=== PATIENT | female | born 1990 | race Caucasian/White ===

== ENCOUNTER 2019-11-19 09:51 | Emergency (ER) | payer OTHER, SELFPAY ==
--- NOTE | ~2019-11-19 | XR_ITS ---
EXAMINATION: XR hand LT min 3V DATE: 11/19/2019 10:17 INDICATION: Pain at the left second and third metacarpals post fall TECHNIQUE: Posteroanterior, oblique and lateral views of the left hand were obtained. COMPARISON: None. FINDINGS: Alignment is normal. No fracture. Joint spaces are normal. Soft tissues are unremarkable. IMPRESSION: 1. Negative left hand radiographs. Reviewed, dictated and finalized at location A. [employer]
[2019-11-19 10:05] VITALS: BP 136/87; PULSE 89; RESP 16; TEMP 36.7; O2SAT 99
--- NOTE | 2019-11-19 10:27 | ED.UPPEXIN ---
HPI - Extremity Injury (Upper) General Chief Complaint: Extremity Injury, Upper Stated Complaint: Left Hand Injury Time Seen by Provider: 11/19/19 10:15 Source: patient and RN notes reviewed Mode of arrival: ambulatory Limitations: no limitations History of Present Illness HPI narrative: Patient presents today with an injury to her left hand. She fell last night at home after tripping and injured the dorsum of her left hand. She reports tingling in fingers 2 and 3. She currently rates her pain 6/10 and has been taking motrin and applying ice without relief. She is up-to-date on her tetanus vaccine. complaint: injury to: left and hand Related Data Home Medications Medication Instructions Recorded Confirmed No Home Medications 11/19/19 11/19/19 Allergies Allergy/AdvReac Type Severity Reaction Status Date / Time No Known Allergies Allergy Verified 03/20/18 12:00 Review of Systems Review of Systems: Narrative: CONSTITUTIONAL: Denies body aches, fever, chills, or sweats. EYES: Denies visual changes, redness, or discharge. ENT: Denies rhinorrhea, congestion, sore throat, or otalgia. CARDIOVASCULAR: Denies chest pain, palpitations, or edema. RESPIRATORY: Denies cough or dyspnea. GASTROINTESTINAL: Denies abdominal pain, nausea, vomiting, or diarrhea. GENITOURINARY: Denies dysuria or hematuria. SKIN: Denies rash, itching, or wounds. MUSCULOSKELETAL: Denies back pain. + Left hand injury NEUROLOGIC: Denies headache, numbness, tingling, or weakness. PSYCH: Denies depression or anxiety. PMFSH Comments At time of signature, I have reviewed and agree with nursing past medical, surgical, social and family history unless otherwise noted. Please see nursing chart for further information. There is no relevant family history pertinent to the presenting complaint Exam Narrative: Exam Narrative: GENERAL: Well-appearing, well-nourished, and in no acute distress. HEAD: Normocephalic, atraumatic. EYES: EOMI. No redness or drainage. Conjunctivae normal. ENT: Mucous membranes pink and moist. NECK: Normal AROM. CHEST: No respiratory distress. EXTREMITIES: Moderate ecchymosis and edema to dorsum of left second and third MCPs. 0.5 cm linear abrasion to same area. Distal sensation intact. Capillary refill normal. Radial pulse normal. Decreased AROM of fingers 2 and 3 due to pain and swelling. All other extremities grossly normal. SKIN: Warm, dry, no rash. NEURO: No focal deficits. Alert and oriented x3. Gait steady. PSYCH: Normal affect. No signs of depression or anxiety. Course Vital Signs Vital signs: Vital Signs Temperature 98.0 F 11/19/19 10:05 Pulse Rate 89 11/19/19 10:05 Respiratory Rate 16 11/19/19 10:05 Blood Pressure 136/87 11/19/19 10:05 Pulse Oximetry 99 11/19/19 10:05 Temperature 98.0 F 11/19/19 10:05 Pulse Rate 89 11/19/19 10:05 Respiratory Rate 16 11/19/19 10:05 Blood Pressure 136/87 11/19/19 10:05 Pulse Oximetry 99 11/19/19 10:05 Reviewed. Pt has been instructed to follow up with her PCP regarding her elevated blood pressure today. MDM - Extremity Injury (Upper) Differential Diagnosis Differential diagnosis: Likely fracture of hand and other (Finger fracture, hematoma, contusion) Imaging Data Radiologist's impression: ITS Impressions Hand X-Ray 11/19/19 10:19 IMPRESSION: 1. Negative left hand radiographs. Critical Care Time Critical Care Time Critical Care Time: No Discharge Plan Discharge Clinical Impression: Contusion of hand, left Qualifiers: Encounter type: initial encounter Qualified Code(s): S60.222A - Contusion of left hand, initial encounter Patient Disposition: Home, Self-Care Condition: Stable Instructions: Contusion in Adults (ED) Additional Instructions: Your x-ray is negative for fracture today. The swelling and bruising on your hand and high take up to a couple of weeks to heal. Apply ice. Continue ibu
== END 2019-11-19 10:39 | disposition home or self-care (01) ==
PROVIDERS: Emergency Provider Nurse Practitioner; PCP Internal Medicine
DX: S60.222A Contusion of left hand, initial encounter (principal); W01.0XXA Fall on same level from slipping, tripping and stumbling without subsequent striking against object, initial encounter
CPT/HCPCS: 73130; 99213; G0463

== ENCOUNTER 2021-06-02 11:02 | Emergency (ER) | payer OTHER, SELFPAY ==
[2021-06-02 11:13] VITALS: BP 148/94; PULSE 97; RESP 16; TEMP 36.2; O2SAT 100
--- NOTE | 2021-06-02 11:14 | ED.URI ---
HPI - URI/Sore Throat General Chief Complaint: Upper Respiratory Infection Stated Complaint: Cough,Runny Nose,Rash Time Seen by Provider: 06/02/21 11:14 Source: patient and RN notes reviewed Mode of arrival: ambulatory Limitations: no limitations History of Present Illness HPI Narrative: 30-year-old female presents to the [facility] with complaints of cough, runny nose and rash. Patient reports its been going on for 4 days. Red raised area to the left arm mid forearm to axilla. Yes it was a gilberto Related Data Home Medications Medication Instructions Recorded Confirmed No Home Medications 06/02/21 06/02/21 Allergies Allergy/AdvReac Type Severity Reaction Status Date / Time No Known Allergies Allergy Verified 06/02/21 11:09 Review of Systems Review of Systems: All systems reviewed & are unremarkable except as noted in HPI and below Constitutional: Constitutional: Reports no additional constitutional complaints, Denies chills and Denies fever(s) Eyes: Eyes: Reports no additional eye complaints ENT: Reports system reviewed and no additional complaints, except as documented, Denies dysphagia, Denies dizziness and Denies sore throat Cardiovascular: Cardiovascular: Reports no additional cardiovascular complaints and Denies chest pain Respiratory: Respiratory: Reports as per HPI, Reports cough and Denies dyspnea Gastrointestinal: Gastrointestinal: Reports no additional gastrointestinal complaints, Denies abdominal pain, Denies nausea and Denies vomiting Genitourinary: Genitourinary: Reports no additional female genitourinary complaints Musculoskeletal: Musculoskeletal: Reports no additional musculoskeletal complaints Integumentary/Breasts: Skin/Breast: Reports system reviewed and no additional complaints, except as docu and Denies rash Neurologic: Reports system reviewed and no additional complaints, except as documented Psychiatric: Psychiatric: Reports no additional psychiatric complaints Allergic/Immunologic: Allergic/Immunologic: Reports no additional allergic/immunologic complaints [facility] Past Medical History Medical History (Updated 06/02/21 @ 19:20 by Alesha Mascorro) Asthma Seasonal allergies Surgical History Surgical History (Updated 06/02/21 @ 19:18 by Alesha Mascorro) No significant past surgical history Social History Social History Smoking packs per day: 0.5 Smoking cigarettes per day: 10.0 Smoking status: Current every day smoker Alcohol intake: current Comments At the time of my signature, I reviewed and agree with the nursing past medical, surgical, social, and family history. There is no relevant family history pertinent to the patient complaint. Exam Const: General: healthy appearing, no acute distress and alert Nutritional Appearance: well nourished Orientation/consciousness: patient oriented x3 Limitations: no limitations HENMT: Head: normal to inspection Ears: external ears normal, TM's normal bilaterally and EAC's normal General nose exam: Normal external nose present, Abnormal mucous membranes and turbinates present boggy; not erythematous and Nasal discharge present clear Face and sinus: normal facial exam Mouth: Yes Normal oral and palatal mucosa present Throat: tonsils normal, uvula midline and postnasal drainage Eyes: Conjunctivae: conjunctivae normal Pupils: Equal, round and reactive pupils present Neck: Neck: normal visual inspection, no lymphadenopathy and no meningeal signs Chest: Chest palpation & inspection: normal inspection of the chest Resp: Effort & Inspection: normal respiratory effort and no use of accessory muscles Auscultation: clear to auscultation bilaterally, no crackles, no rales, no rhonchi and no wheezes Cardio: Rate: regular rate Rhythm: regular rhythm GI: GI Palp: Yes Soft to palpation and No Tenderness to palpation present (GI) : General: Yes no CVA tenderness Back/Spine/Pelvis
[2021-06-03 19:55] LABS: SARS-CoV-2 RNA PCR Negative
== END 2021-06-02 11:30 | disposition home or self-care (01) ==
PROVIDERS: Emergency Provider Nurse Practitioner; PCP Internal Medicine
DX: J06.9 Acute upper respiratory infection, unspecified (principal); Z20.822 Contact with and (suspected) exposure to COVID-19; J45.909 Unspecified asthma, uncomplicated
CPT/HCPCS: 99213; C9803; G0463; U0003; U0005

== ENCOUNTER 2024-03-04 19:48 | Emergency (ER) | payer OTHER, SELFPAY ==
--- NOTE | 2024-03-04 19:53 | ED.GENADULT ---
HPI - General Adult General Chief complaint: Upper Respiratory Infection Stated complaint: COUGH/SLEEPING/NO ENERGY/NAUSEA Time Seen by Provider: 03/04/24 19:53 Source: patient Mode of arrival: ambulatory Limitations: no limitations History of Present Illness HPI narrative: 33-year-old female patient presents to the [facility] with complaints of cold symptoms for the past 2 days. Patient states she has had fevers as high as 101. Patient states she has been very fatigued and just mostly sleeping. Patient states little bit congestion slight cough denies chest pain, shortness of breath denies any ear pain or sore throat. Denies taking any medications for his symptoms. Related Data Home Medications Medication Instructions Recorded Confirmed No Home Medications 06/02/21 03/04/24 Allergies Allergy/AdvReac Type Severity Reaction Status Date / Time No Known Allergies Allergy Verified 03/04/24 19:57 Review of Systems Review of Systems: CONSTITUTIONAL: Positive subjective fever, denies chills, or sweats. positive fatigue EYES: Denies visual changes, redness, or discharge. ENT: positive rhinorrhea, positive congestion, denies sore throat, or otalgia. CARDIOVASCULAR: Denies chest pain, palpitations, or edema. RESPIRATORY: positive cough , denies dyspnea. GASTROINTESTINAL: Denies abdominal pain, nausea, vomiting, or diarrhea. GENITOURINARY: Denies dysuria or hematuria. SKIN: Denies rash or itching. MUSCULOSKELETAL: Denies back pain, joint pain, or myalgia. NEUROLOGIC: Denies headache, numbness, or weakness. PSYCHIATRIC: Denies anxiety or depression. PMFSH Past Medical History Medical History Asthma Seasonal allergies Surgical History Surgical History No significant past surgical history Social History Social History Smoking packs per day: 0.5 Smoking cigarettes per day: 10.0 Smoking status: Current every day smoker Alcohol intake: current Comments At the time of my signature I agree with nursing past medical history, surgical, social, and family history. There is no relevant family history pertinent to the presenting complaint. Exam Narrative: GENERAL: Well-appearing, well-nourished, and in no acute distress. HEAD: Normocephalic, atraumatic. EYES: PERRLA and EOMI. ENT: Nares clear, no rhinorrhea or epistaxis. Mucous membranes moist. posterior pharynx with no erythema, tonsillar enlargement, exudates or lesions present. Bilateral TMs are clear no erythema or foreign bodies the canal. NECK: Supple. No lymphadenopathy CHEST: Clear to auscultation. No respiratory distress. HEART: Regular rate and rhythm. No murmur heard. Normal peripheral pulses. ABDOMEN: Soft, nontender, nondistended, normal active bowel sounds. EXTREMITIES: Normal range of motion. No edema. SKIN: Warm, dry, no rash. NEURO: No focal deficits. Alert and oriented x3. Course Course Level of Care: Express Care Visit Vital Signs Vital signs: Vital Signs Temperature 36.5 C 03/04/24 19:59 Pulse Rate 86 03/04/24 19:59 Respiratory Rate 16 03/04/24 19:59 Blood Pressure 157/100 H 03/04/24 19:59 Pulse Oximetry 97 03/04/24 19:59 Temperature 36.5 C 03/04/24 19:59 Pulse Rate 86 03/04/24 19:59 Respiratory Rate 16 03/04/24 19:59 Blood Pressure 157/100 H 03/04/24 19:59 Pulse Oximetry 97 03/04/24 19:59 Vital signs reviewed. The patient has been informed that they may have pre-hypertension or Hypertension based on a BP reading in the department. I recommend that the patient call the primary care provider listed on their discharge instructions or a physician of their choice this week to arrange follow up for further evaluation of possible pre-hypertension or Hypertension Medical Decision Making TERRY Liao Medical decision ma
[2024-03-04 19:59] VITALS: BP 157/100; PULSE 86; RESP 16; TEMP 36.5; O2SAT 97
== END 2024-03-04 20:17 | disposition home or self-care (01) ==
PROVIDERS: Emergency Provider Nurse Practitioner Family
DX: J06.9 Acute upper respiratory infection, unspecified (principal); Z20.822 Contact with and (suspected) exposure to COVID-19; F17.210 Nicotine dependence, cigarettes, uncomplicated; J45.909 Unspecified asthma, uncomplicated
CPT/HCPCS: 87426; 87804; 99213; G0463

== ENCOUNTER 2025-01-06 02:17 | Emergency (ER) | payer OTHER, SELFPAY ==
[2025-01-06] VITALS (25 sets, daily range): BP systolic 128–156; BP diastolic 64–106; PULSE 87–130; RESP 14–20; TEMP 36.7; O2SAT 94–99
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
[2025-01-06] MEDS: ACETAMINOPHEN 500 MG TABLET 1000 MG PO (02:51)
[2025-01-06 02:57] LABS: Basophils Percent Auto 0.3 % (0.2-1.2); Hematocrit 40.7 % (37.0-47.0); Hemoglobin 13.6 g/dL (12.0-15.0); Immature Granulocyte Absolute 0.02 K/mm3 (0.00-0.031); Immature Granulocyte Percent A 0.3 % (0-0.5); Lymphocytes Absolute Auto 0.84 K/mm3 (0.9-3.2); Lymphocytes Percent Auto 13.4 % (18.3-44.2); Mean Corpuscular HGB Conc 33.4 g/dl (32-36); Mean Corpuscular Hemoglobin 30.4 pg (26-34); Mean Corpuscular Volume 90.8 fl (80-100); Mean Platelet Volume 9.1 fl (7.4-10.4); Monocytes Absolute Auto 0.3 K/mm3 (0.1-0.6); Monocytes Percent Auto 4.1 % (2.6-8.5); Neutrophils Absolute Auto 5.1 K/mm3 (1.3-6.7); Neutrophils Percent Auto 81.9 % (45.5-73.1); Platelet Count Result 381 k/mm3 (150-375); Red Blood Count 4.48 M/mm3 (4.2-5.4); Red Cell Distribution Width 11.9 % (11.5-14.5); White Blood Count 6.3 K/mm3 (4.5-10.0)
[2025-01-06 03:11] LABS: Alanine Aminotransferase 16 U/L (6-35); Albumin Level 4.7 g/dL (3.5-5.1); Alkaline Phosphatase 81 U/L (38-126); Anion Gap 20 mmol/L (4-12); Aspartate Amino Transferase 21 U/L (14-36); Bilirubin,Total 0.3 mg/dL (0.2-1.3); Blood Urea Nitrogen 11 mg/dL (7-17); Calcium 9.6 mg/dL (8.4-10.2); Carbon Dioxide 11 mmol/L (22-30); Chloride 113 mmol/L (98-107); Estimated CRCL calculation 77 ml/min; Estimated Glomerular Filt Rate > 60; Glucose 299 mg/dL (65-110); Potassium 3.6 mmol/L (3.4-5.0); Sodium 144 mmol/L (137-145)
--- OUTSIDE RECORDS SUMMARY | 2025-01-06 03:28 | XMS_ITS | Clinical Summary ---
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 Name Role Phone Unavailable Primary Care Provider Unavailabl e Social History Tobacco Use Types Packs/Day Years Used Date Smoking Tobacco: Never Assessed Comments Unknown Sex and Gender Information Value Date Recorded Sex Assigned at Not on file Legal Sex Female 12:09 PM [employer] Gender Identity Not on file Sexual Orientation Not on file Plan of Treatment Health Maintenance Due Date Last Done Comments Hepatitis C Virus (HCV) Screening 1991 TdaP Immunization 1991 Hepatitis B Immunization (1 of 3 - 19+ 3-dose series) 2010 Pap Smear 2012 Cervical Cancer Screening (CCS) 2021 HPV/Cotest 2021 Influenza Immunization (#1) 2024 SARS-COV-2 Immunization ( season) 2024 Respiratory Syncytial Virus (RSV) Immunization (Adult) (1 - 1-dose 75+ series) 2066 Meningococcal Immunization (ACWY) Aged Out No longer eligible based on patient's age to complete this topic Pneumococcal Immunization Combined Aged Out No longer eligible based on patient's age to complete this topic Rotavirus Immunization Aged Out No lo nger eligible based on patient's age to complete this topic Insurance [employer] on file
--- OUTSIDE RECORDS SUMMARY | 2025-01-06 03:28 | XMS_ITS | Referral Summary ---
Author Organization [facility] Address [address] [place] [address] Care Team Providers Care Attendant Lodging Facilities Name Role Phone Jordin Bronson MD Primary Care Provider +1- [phone] Allergies No known active allergies Medications albuterol HFA (PROVENTIL HFA,VENTOLIN HFA,PROAIR HFA) 90 mcg/actuation inhaler Inhale 2 puffs every 4 (four) hours as needed for wheezing 1 each 12/23/2022 Active Social History Tobacco Use Types Packs/Day Years Used Date Smoking Tobacco: Heavy Smoker Comments:Smoking History Pac ks/day: 10 Cigarettes Alcohol Use Standard Drinks/Week Comments Yes 0 (1 standard drink = 0.6 oz pur e alcohol) Personal Safety Answer Date Recorded Getting School Help Needed Not on file 01/12 Comments Unknown Sex and Gender Information Value Date Recorded Sex Assigned at Not on file 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 Gender Identity Not on file Sexual Orientation Not on file Last Filed Vital Signs Vital Sign Reading Time Taken Comments Blood Pressure 150/95 12/23/2022 1:15 PM CDT Pulse 80 12/23/2022 1:15 PM CDT Temperature 36.2 C (97.1 F) 12/23/2022 1:15 PM CDT Respiratory Rate 18 12/23/2022 1:15 PM CDT Oxygen Saturation 98% 12/23/2022 1:15 PM CDT Inhaled Oxygen Concentration - - Weight 76.6 kg (168 lb 12.8 oz) 07/31/2015 4:45 PM CDT Height 162.6 cm (5' 4 ) 07/31/2015 4:45 PM CDT Body Mass Index 28.97 07/31/2015 4:45 PM CDT Plan of Treatment Not on file Insurance AETNA [facility] Care Teams Attendant Lodging Facilities Relationship Specialty Start Date End Date Jordin Bronson MD [address] [place] [address] PCP - General 07/31/15
--- OUTSIDE RECORDS SUMMARY | 2025-01-06 03:28 | XMS_ITS | Clinical Summary ---
Author Organization [facility] Address [address] [place] [address] Care Team Providers Care Probation And Patrol Agent Name Role Phone Jordin Bronson MD Primary Care Provider +1- [phone] Allergies No known active allergies Medications albuterol HFA (PROVENTIL HFA,VENTOLIN HFA,PROAIR HFA) 90 mcg/actuation inhaler Inhale 2 puffs every 4 (four) hours as needed for wheezing 1 each 12/23/2022 Active Surgical History Surgery Date Site/Laterality Comments SECTION Medical History Medical History Date Comments Asthma Asthma Social History Tobacco Use Types Packs/Day Years [...] on file 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 Gender Identity Not on file Sexual Orientation Not on file Obstetrics History Last Filed Vital Signs Vital Sign Reading [...] 07/31/2015 4:45 PM CDT Plan of Treatment Health Maintenance Due Date Last Done Comments Cervical Cancer Screening 1991 Depression Screening 1991 Hepatitis C Screening 1991 DTaP/Tdap/Td Vaccine (1 - Tdap) 2002 Varicella Vaccines (1 of 2 - 13+ 2-dose series) 2004 Hepatitis B Screening 2009 Regular Well Visit/Exam 18-64 2009 Pneumococcal vaccine <65 (1 of 2 - PCV) 2010 Influenza Vaccine (#1) 2024 HPV Vaccines Aged Out No longer eligi ble based on patient's age to complete this topic Insurance AETNA [facility] Care Teams Probation And Patrol Agent Relationship Specialty Start Date End Date Jordin Bronson MD [address] [place] [address] PCP - General 07/31/15
[2025-01-06 03:30] LABS: Beta HCG Quantitative < 2.39 mIU/ML
[2025-01-06 03:55] LABS: Glucose Point of Care 202 mg/dl (65-105)
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
[2025-01-06] MEDS: LORazepam INJ (*CRX) 2 MG/ML VIAL IV PUSH (04:15)
[2025-01-06] MEDS: ONDANSETRON INJ 4 MG/2 ML VIAL IV PUSH (04:15)
--- NOTE | 2025-01-06 04:24 | PC.NURSE ---
[facility] seizure. edp dr. zamudio verbal ordered 2mg of ativan to be given IVPush due to seizure like activity. this rn used closed loop communication to verify medication/ rate/ dose/ person/ time. edp dr. zamudio verbalized confirmation and placed a medication order in chart. pt is ao x4 upon arrival to bedside. pt has a manageable airway. pt not in active distress at this time and vitals are within normal limits.
--- NOTE | 2025-01-06 04:40 | PC.NURSE ---
Sane to nurses station to state, Patient is too zonked to be evaluated at this time . nuclear plant technical advisor and KNITTER MACHINE Lalita aware.
[2025-01-06 04:53] LABS: Ethanol 111 mg/dL (<10)
--- NOTE | 2025-01-06 05:01 | PC.NURSE ---
patient moved from room 22 to room 11 per clinic charge nurse MB. pt report was given to MEG Gonzalez.
[2025-01-06] MEDS: SODIUM CHLORIDE 0.9% IV 1,000 ML 999 ML IV CONT (06:12)
[2025-01-06 06:38] LABS: Beta-Hydroxybutyrate/Acetoacetate 0.11 mmol/L (0.02-0.27)
[2025-01-06 08:09] LABS: BEDSIDEPREGUCG Negative (Negative)
[2025-01-06 08:35] LABS: Barbiturate Screen Urine Negative (Negative); Benzodiazepines Screen Urine Negative (Negative)
[2025-01-06 08:37] LABS: Cannabinoid Screen Urine Negative (Negative); Cocaine Screen Urine Negative (Negative); Methadone Screen Urine Negative (Negative); Opiate Screen Urine Negative (Negative); Phencyclidine Screen Urine Negative (Negative)
[2025-01-06] MEDS: NALOXONE HCL 0.4 MG/ML VIAL IV PUSH (08:44)
[2025-01-06 08:51] LABS: Amphetamine Screen Urine Positive (Negative)
--- NOTE | 2025-01-06 14:52 | PC.NURSE ---
DEANN's nurse here and talking with the pt. Pt is now more alert and awake.
[2025-01-06] MEDS: cefTRIAXone 1 GM VIAL 0.5 GM IM (17:24)
[2025-01-06] MEDS: DOXYCYCLINE HYCLATE 100 MG TABLET PO (17:24)
[2025-01-06] MEDS: metroNIDAZOLE 500 MG TABLET PO (17:24)
[2025-01-06 17:58] LABS: HIV 1/2 Ab P24 Ag Result Negative (Negative)
--- NOTE | 2025-01-06 18:43 | PC.NURSE ---
Pt offered shower and pt refused.
== END 2025-01-06 19:22 | disposition home or self-care (01) ==
PROVIDERS: Registered Nurse; Student in an Organized Health Care Education/Training Program; Emergency Provider Family Medicine
DX: T74.21XA Adult sexual abuse, confirmed, initial encounter (principal); Y07.031 Male partner, former, perpetrator of maltreatment and neglect; F10.129 Alcohol abuse with intoxication, unspecified; Y90.5 Blood alcohol level of 100-119 mg/100 ml; D75.839 Thrombocytosis, unspecified; J45.909 Unspecified asthma, uncomplicated; F17.210 Nicotine dependence, cigarettes, uncomplicated
CPT/HCPCS: 36415; 70450; 70498; 71045; 72125; 73060; 73130; 80053; 80307; 81025; 82010; 82077; 82948; 83036; 83605; 84702; 85025; 86703; 96361; 96372; 96374; 96375; 99285; A9270; G0432; J0696; J2003; J2060; J2310; J2405; J7030; Q9967

== ENCOUNTER 2025-02-26 18:18 | Emergency (ER) | payer OTHER, SELFPAY ==
--- OUTSIDE RECORDS SUMMARY | 2025-02-26 18:21 | XMS_ITS | Clinical Summary ---
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
--- OUTSIDE RECORDS SUMMARY | 2025-02-26 18:21 | XMS_ITS | Referral Summary ---
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
--- OUTSIDE RECORDS SUMMARY | 2025-02-26 18:21 | XMS_ITS | Data Portability ---
Author Organization [facility] Main Office Address [address] [place] [address] Assessment No assessment recorded. Plan of Treatment Reminders Order Date Submit Date Provider Last Modified By Organization Details Last Modified Time Details Appointments Follow Up 15 2024 01:00P [facility] Elizalde Not available Not available Not available Lab drug of abuse panel, urine 2023 024 [facility] [address] [place], [address], 10/03/2024 19:02:16 Referral orthopedi c sports medicine referral - right thumb pain , please eval and treat. Please call patient to schedule an appointme nt. Thank you. 2023 024 [email or web address], [address] [place] [address], [address], 11/03/2024 08:49:43 Procedures None recorded. Surgeries None recorded. Imaging None recorded. Medication Orders Aptensio XR 30 mg capsule,e xtended release sprinkle 2024 025 [email or web address] 00 [facility]/Pharmacy #3259, [address] [place], [address], 02/04/2025 15:04:51 albuterol sulfate HFA 90 mcg/actua tion aerosol inhaler 2023 024 [facility]/Pharmacy #3259, [address] [place], [address], 10/03/2024 16:30:06 Dulera 100 mcg-5 mcg/actua tion HFA aerosol inhaler 2023 024 [facility]acy #3259, [address] [place] [address], [address], 10/03/2024 16:30:05 Depo-Medr ol 80 mg/mL suspensio n for injection 2023 024 [email or web address] Not available 10/03/2024 16:37:47 methylphe nidate ER 30 mg capsule,e xtended release (40-60) sprinkle 2023 025 [email or web address] 00 [facility]/Pharmacy #3259, [address] [place] [address], [id number], 10/09/2024 16:54:33 baclofen 10 mg tablet 2023 024 [facility] #3259, [address] [place] [address], [id number], 10/03/2024 16:25:03 ibuprofen 600 mg tablet 2023 024 [facility] #3259, [address] [place] [address], [address], 10/03/2024 16:25:04 prednison e 20 mg tablet [address]/Pharmacy #3259, [address] [place] [address], [id number], 01/29/2025 12:38:35 cyclobenz aprine 10 mg tablet [address]/Pharmacy #3259, [address] [place] [address], [address], 01/29/2025 12:38:46 methylphe nidate ER 10 mg tablet,ex tended release [address]/Pharmacy #3259, [address] [place] [address], [place], [address], 01/29/2025 12:39:21 Patient TargetsNo targets recorded. Patient Instructions Encounter Date Encounter Id Patient Instructions Last Modified By Organization Details Last Modified Time 10/03/2024 [id number] get KT tape ,watch you tube video on how to cut and apply to thumb [email or web address] Not available 10/09/2024 16:56:14 Reason for Referral Orthopedic Sports Medicine R eferral for Pain in right thumb right thumb pain , please eval and treat. Please call patient to schedule an appointment. Thank you. Referring Physician: Patricio Cherry, Family Medicine, Encounter Date: 10/03/2024 Results Created Date Observation Date Name Description Value Unit Range Abnormal Flag Note LastModifiedBy Organization Detail LastModifiedTime Result Notes None recorded. Problems Name Problem SNOMED Code Status Onset Date Resolution Date Notes Provider Name and Address Organization Details Recorded Time Attention deficit hyperactivi ty disorder, predominant ly inattentive type 93980878 Active 2023 MARIO ALBERTO Ortega [address], [place], [address], [employer] 15:49:23 Cyst 047922203 Active 2023 MARIO ALBERTO Ortega [address], [place], [address], [employer] 15:51:32 Pain in right thumb 7043265458171 102 Active 2023 MARIO ALBERTO Ortega [address], [place], [address], [employer] 15:54:51 Asthma 191303689 Active 2023 MARIO ALBERTO Ortega [address], [place], [address], [employer] 16:25:42 Problem Notes None recorded. Procedures Surgical History Date Name Laterality Status Provider Name and Address Organization Details Recorded Time section completed Steff Brown RN [facility] 08/01/2024 15:15:21 Imaging Results None recorded. Procedure Notes None recorded. Medical Equipment None Reported. Allergies No known drug allergies Medications Name Sig Start Date Stop Date Status Note LastModified by Organization Details LastModified Time cyclobenza christina 10 mg tablet TAKE 1 TABLET BY MOUTH EVERY DAY AT BEDTIME FOR 30 DAYS 01/29 completed pt does not like this med; does help her sleep . Not Available Not Available Not Available doxycyclin e hyclate 100 mg capsule TAKE 1 CAPSULE BY MOUTH TWICE A DAY 01/29 completed Not Available Not Available Not Available prednisone 20 mg tablet PLEASE SEE ATTACHED FOR DETAILED DIRECTION S 01/29 completed Not Available Not Available Not Available methylphen idate ER 10 mg tablet,ext ended release Take 1 tablet every day by oral route in the morning for 14 days. 01/29 completed Not Available Not Available Not Available metronidaz ole 500 mg tablet TAKE 1 TABLET EVERY 8 HOURS FOR 7 DAYS 01/29 completed Not Available Not Available Not Available Depo-Medro l 80 mg/mL suspension for injection Take 1 mL by injection route. 2023 active Not Available Not Available Not Avai lable baclofen 10 mg tablet TAKE 1 TABLET BY MOUTH THREE TIMES A DAY NEEDED FOR 30 DAYS active Not Available Not Available No t Available methylphen idate ER 20 mg tablet,ext ended release TAKE 1 TABLET BY MOUTH EVERY DAY IN THE MORNING 01/29 completed Not Available Not Available Not Available ibuprofen 600 mg tablet TAKE 1 TABLET 3 TIMES A DAY BY ORAL ROUTE AFTER MEAL(S) FOR 30 DAYS. active Not Available Not Available No t Available albuterol sulfate HFA 90 mcg/actuat ion aerosol inhaler INHALE 2 PUFFS EVERY 8 HOURS BY INHALATIO N ROUTE NEEDED FOR 30 DAYS. active Not Available Not Available No t Available ondansetro n 4 mg disintegra ting tablet TAKE 1 TABLET BY MOUTH EVERY 6-8 HOURS NEEDED FOR NAUSEA AND VOMITING active Not Available Not Available No t Available Isentress 400 mg tablet TAKE 1 TABLET BY MOUTH TWICE A DAY 01/29 completed Not Available Not Available Not Available Vyvanse 40 mg capsule TAKE 1 CAPSULE BY MOUTH EVERY DAY IN THE MORNING active Not Available Not Available No t Available Dulera 100 mcg-5 mcg/actuat ion HFA aerosol inhaler INHALE 2 PUFFS INTO THE LUNGS TWICE A DAY FOR 30 DAYS active Not Available Not Available No t Available Viread 200 mg tablet TAKE 1 TABLET BY MOUTH EVERY DAY 01/29 completed Not Available Not Available Not Available methylphen idate ER 30 mg capsule,ex tended release (40-60) sprinkle TAKE 1 CAPSULE BY MOUTH EVERY DAY IN THE MORNING active Not Available Not Available No t Available methylphen idate ER 30 mg chewable tablet immed and exten.rele ase 24 hr Chew 1 tablet every day by oral route in the morning for 30 days. 2024 active Not Available Not Available Not Avai lable Vitals Date Recorded Body height Body mass index (BMI) Body weight Body temperature Oxygen saturation Oxygen saturation in Arterial blood by Pulse oximetry Heart rate Systolic And Diastolic Provider Name and Address Organization Details Last Updated DateTime 5 157.48 cm 27.4 kg/m2 68380.8 6 g 98 [degF] 99 % 99 % 86 /min 118/80 mm[Hg] Tete Yadav Babar [facility] [employer] [facility] 5 12:41:13 Date Recorded Body weight Body mass index (BMI) Body height Body temperature Heart rate Oxygen saturation Oxygen saturation in Arterial blood by Pulse oximetry Systolic And Diastolic Provider Name and Address Organization Details Last Updated DateTime 4 29804.6 7 g 27.1 kg/m2 157.48 cm 96.8 [degF] 101 /min 99 % 99 % 120/86 mm[Hg] Steff Brown RN [facility] [employer] [facility] 4 15:16:58 Date Recorded Body height Body mass index (BMI) Body weight Body temperature Heart rate Oxygen saturation Oxygen saturation in Arterial blood by Pulse oximetry Systolic And Diastolic Provider Name and Address Organization Details Last Updated DateTime 4 157.48 cm 28.7 kg/m2 31815 g 98.2 [degF] 100 /min 98 % 98 % 130/86 mm[Hg] Steff Brown RN [facility] [employer] [facility] 4 16:16:00 Social History None recorded. Functional Status None recorded. Mental Status None recorded. Family History Nothing Reported. Medical History No medical history recorded. Gynecological HistoryNo gynecological history recorded. Obstetrics History GPAL:G 0 P 0 0 0 0 Past Encounters Encounter ID Performer Location Encounter Start Date Encounter Closed Date Diagnosis/Indication Diagnosis SNOMED-CT Code Diagnosis ICD10 Code Diagnosis Note [id number] Antonino Ramirez MD [facility] [address] [place] [address] 08/01/2024 15:07:34 08/01/2024 16:01:00 Attention deficit hyperactivity disorder, predominantly inattentive type 61169937 F90.0 Pain in right thumb 1076 884881 570762 M79.644 subchondra l cyst thumb right [id number] Antonino Ramirez MD [facility] [address] [place] [address] 10/03/2024 16:07:23 10/03/2024 16:42:12 Long-term drug therapy 629728415 Z79.891 Pain in right thumb 1076 113935 946945 M79.644 subchondra l cyst thumb right Asthma 132015773 J45.90 9 Attention deficit hyperactivity disorder, predominantly inattentive type 65651000 F90.0 [id number] Antonino Ramirez MD [facility] [address] [place] [address] 01/29/2025 12:30:08 01/29/2025 12:55:13 Attention deficit hyperactivity disorder, predominantly inattentive type 56579560 F90.0 Health Concerns Section Related Observation LastModified by Organization Detai ls LastModified Time None Recorded Concern Status LastModified by Organization Details LastModified Time None Recorded Advance Directives Directive None Recorded Payers Encounter Date Sequence Insurance Name Policy Number Policy Cline Covered Member ID Cline Member ID Guarantor Name 08/01/2024 1 [employer] [place] 2020 [place]MEDICAID REPLACEMENT - HMO) Kera Srinivasan [id number] Kera Srinivasan 10/03/2024 1 [employer] [place]MEDICAID REPLACEMENT - HMO) Kera Srinivasan [id number] Kera Srinivasan 01/29/2025 1 [employer] [place]MED[place]ID REPLAC[place] - HMO) Kera Robertdeejay [id number] Kera Srinivasan Notes Date Note Type Note Provider Name and Address Organization Details Recorded Time 08/01/2024 text/html treated in high school . MARIO ALBERTO Bermeo [address] [facility], [place], [address], [employer] 08/27/2024 17:41:02 10/03/2024 text/html asthma has flared MARIO ALBERTO Ortega [address], [place], [address], [employer] 10/09/2024 16:56:32 01/29/2025 text/html [employer] not helping . MARIO ALBERTO Ortega [address], [place], [address], [employer] 02/04/2025 15:07:27 OBGyn Episode No OBEpisode recorded.
[2025-02-26 18:24] VITALS: BP 143/105; PULSE 88; RESP 100; TEMP 36.6; O2SAT 100
== END 2025-02-26 20:25 | disposition left against medical advice (07) ==
LOC: ANHED 19:32
DX: R51.9 Headache, unspecified (principal)
CPT/HCPCS: 99199

== ENCOUNTER 2025-02-28 12:25 | Observation (INO) | payer OTHER, SELFPAY ==
--- NOTE | ~2025-02-28 | MR_ITS ---
EXAMINATION: MR brain/brain stem wo/w con DATE: 03/01/2025 15:47 INDICATION: Headache. Convulsions. TECHNIQUE: Magnetic resonance imaging (MRI) of the brain and brainstem was performed without and with 14 mL ProHance intravenous contrast. Sequences included sagittal and axial T1-weighted SE, axial dif fusion-weighted FS SE, axial 3D SWAN, axial T2-weighted FLAIR Propeller, axial T2-weighted Propeller, coronal T2-weighted FLAIR, and coronal T1-weighted 3D FSPGR. Postcontrast axial T1-weighted SE was o btained. Apparent diffusion coefficient (ADC) maps were created. COMPARISON: Head CT dated 02/28/2025 FINDINGS: There are no areas of restricted diffusion to suggest acute infarction. No intracranial hemorrhage or abnormal intracranial mass lesion. There are no intraparenchymal signal abnormalities seen on the ot her pulse sequences. Hippocampi are normal and symmetric. No cueva matter heterotopias or other neuron al migrational abnormalities. The ventricles are symmetric and normal in size. There are no abnormal extra-axial fluid collections. Flow voids are seen in the cerebral arteries on the T2-weighted sequen heath consistent with their expected patency. Visualized orbits and soft tissues are unremarkable. Ther e are no areas of abnormal enhancement on the post contrast images. IMPRESSION: 1. Normal brain. No acute intracranial process. Reviewed, dictated and finalized at location A.
--- NOTE | ~2025-02-28 | CT_ITS ---
EXAMINATION: CT brain wo con DATE: 02/28/2025 14:39 INDICATION: Headache. Possible seizure. TECHNIQUE: Computed tomography (CT) of the head was performed without intravenous contrast. Sagittal and coronal reconstructions were performed. The mA was adjusted according to patient size. Iterative reconstruction technique was employed. The dose-length product was 605.33 mGy-cm. COMPARISON: head CT dated 01/06/2025 FINDINGS: No acute intracranial hemorrhage, acute infarction or abnormal extra axial fluid collection. Ventricl es are normal and symmetric. No mass/mass effect. The orbits, paranasal sinuses and mastoid air cells are normal. IMPRESSION: 1. Normal head CT. Reviewed, dictated and finalized at location A. IMPRESSION: 1. Normal head CT.
--- OUTSIDE RECORDS SUMMARY | 2025-02-28 12:31 | XMS_ITS | Referral Summary ---
Author Organization 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
--- OUTSIDE RECORDS SUMMARY | 2025-02-28 12:31 | XMS_ITS | Data Portability ---
Author Organization [place] - [facility], Main Office Address [address] [place] [address] Assessment No assessment recorded. Plan of Treatment Reminders Order Date Submit Date Provider Last Modified By Organization Details Last Modified Time Details Appointments Follow Up 15 2024 01:00P WU Elizalde Not available Not available Not available Lab drug of abuse panel, urine 2023 024 [facility] ([facility]), [address] [place], [address], 10/03/2024 19:02:16 Referral orthopedi c sports medicine referral - right thumb pain , please eval and treat. Please call patient to schedule an appointme nt. Thank you. 2023 024 [email or web address], [address] [place] [address], [address], 11/03/2024 08:49:43 Procedures None recorded. Surgeries None recorded. Imaging None recorded. Medication Orders Aptensio XR 30 mg capsule,e xtended release sprinkle 2024 025 [email or web address] 00 [facility]/Pharmacy #3259, [address] [place], [address], 02/04/2025 15:04:51 albuterol sulfate HFA 90 mcg/actua tion aerosol inhaler 2023 024 [facility]/Pharmacy #3259, [address] [place], [address], 10/03/2024 16:30:06 Dulera 100 mcg-5 mcg/actua tion HFA aerosol inhaler 2023 024 [facility]/Pharmacy #3259, [address] [place] [address], [id number], 10/03/2024 16:30:05 Depo-Medr ol 80 mg/mL suspensio n for injection 2023 024 [email or web address] Not available 10/03/2024 16:37:47 methylphe nidate ER 30 mg capsule,e xtended release (40-60) sprinkle 2023 025 [email or web address] 00 [facility]/Pharmacy #3259, [address] [place] [address], [id number], 10/09/2024 16:54:33 baclofen 10 mg tablet 2023 024 [facility]/Pharmacy #3259, [address] [place] [address], [id number], 10/03/2024 16:25:03 ibuprofen 600 mg tablet 2023 024 [facility]/Pharmacy #3259, [address] [place] [address], [address], 10/03/2024 16:25:04 prednison e 20 mg tablet [address]/Pharmacy #3259, [address] [place] [address], [id number], 01/29/2025 12:38:35 cyclobenz aprine 10 mg tablet [address]/Pharmacy #3259, [address] [place] [address], [address], 01/29/2025 12:38:46 methylphe nidate ER 10 mg tablet,ex tended release [address]/Pharmacy #3259, [address] [place] [address], [place], [address], 01/29/2025 12:39:21 Patient TargetsNo targets recorded. Patient Instructions Encounter Date Encounter Id Patient Instructions Last Modified By Organization Details Last Modified Time 10/03/2024 [id number] get KT tape ,watch you tube video on how to cut and apply to thumb Not available 10/09/2024 16:56:14 Reason for Referral [...] hyperactivi ty disorder, predominant ly inattentive type 94341125 Active 2023 MARIO ALBERTO Ortega [address], [employer], [place], [address], [employer] 15:49:23 Cyst 259588727 Active 2023 MARIO ALBERTO Ortega [address] [employer], [place], [address], [employer] 15:51:32 Pain in right thumb 2938814432933 102 Active 2023 MARIO ALBERTO Ortega [address], [employer], [place], [address], [employer] 15:54:51 Asthma 357874228 Active 2023 MARIO ALBERTO Ortega [address], [address], [place], [address], [employer] 16:25:42 Problem Notes None recorded. Procedures Surgical History Date Name Laterality Status Provider Name and Address Organization Details Recorded Time section completed Steff Brown RN [facility] 08/01/2024 15:15:21 Imaging Results None recorded. Procedure [...] blood by Pulse oximetry Heart rate Systolic blood pressure Diastolic blood pressure Provider Name and Address Organization Details Last Updated DateTime 5 157.48 cm 27.4 kg/m2 13775.8 6 g 98 [degF] 99 % 99 % 86 /min 118 mm[Hg] 80 mm[Hg] Tete Yadav Babar [facility] [employer] [facility] 5 12:41:13 Date Recorded Body weight Body mass index (BMI) Body height Body temperature Heart rate Oxygen saturation Oxygen saturation in Arterial blood by Pulse oximetry Systolic blood pressure Diastolic blood pressure Provider Name and Address Organization Details Last Updated DateTime 4 34283.6 7 g 27.1 kg/m2 157.48 cm 96.8 [degF] 101 /min 99 % 99 % 120 mm[Hg] 86 mm[Hg] Steff Brown RN [facility] [employer] [facility] 4 15:16:58 Date Recorded Body height Body mass index (BMI) Body weight Body temperature Heart rate Oxygen saturation Oxygen saturation in Arterial blood by Pulse oximetry Systolic blood pressure Diastolic blood pressure Provider Name and Address Organization Details Last Updated DateTime 4 157.48 cm 28.7 kg/m2 86971 g 98.2 [degF] 100 /min 98 % 98 % 130 mm[Hg] 86 mm[Hg] Steff Brown RN [facility] [email or web address] [facility] 4 16:16:00 Social History None recorded. Functional Status None recorded. Mental Status None recorded. Family History Nothing Reported. Medical History No medical history recorded. Gynecological HistoryNo gynecological history recorded. 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 Pain in right thumb 1076 679960 091587 M79.644 subchondra l cyst thumb right [id number] Antonino Ramirez MD [facility] [address] [place] [address] 10/03/2024 16:07:23 10/03/2024 16:42:12 Long-term drug therapy 882269474 Z79.891 Pain in right thumb 1076 096968 223719 M79.644 subchondra l cyst thumb right Asthma 248564581 J45.90 9 Attention deficit hyperactivity disorder, predominantly inattentive type 02278597 F90.0 [id number] Antonino Ramirez MD [facility] [address] [place] [address] 01/29/2025 12:30:08 01/29/2025 12:55:13 Attention deficit hyperactivity disorder, predominantly inattentive type 03187328 F90.0 Health Concerns Section Related Observation LastModified [...] 2020 (MEDICAID REPLACEMENT - HMO) Kera Srinivasan [id number] Kera Srinivasan 10/03/2024 1 [employer] [place] ON [place] AFTER 2020 (MEDICAID REPLACEMENT - HMO) Kera Srinivasan [id number] Kera Srinivasan 01/29/2025 1 [employer] [place]MEDICAID REPLACEMENT - HMO) Kera Srinivasan [id number] Kera Srinivasan Notes Date Note Type Note Provider Name and Address Organization Details Recorded Time 08/01/2024 text/html treated in high school . MARIO ALBERTO Bermeo [address], [address], [place], [address], [employer] 08/27/2024 17:41:02 10/03/2024 text/html asthma has flared MARIO ALBERTO Ortega [address] [employer], [address], [place], [address], [employer] 10/09/2024 16:56:32 01/29/2025 text/html vyvance not helping . MARIO ALBERTO Ortega [address], [place], [address], [employer] 02/04/2025 15:07:27 OBGyn Episode No OBEpisode recorded.
--- OUTSIDE RECORDS SUMMARY | 2025-02-28 12:31 | XMS_ITS | Clinical Summary ---
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
[2025-02-28 12:34] VITALS: BP 151/86; PULSE 90; RESP 16; TEMP 36.8; O2SAT 100
--- NOTE | 2025-02-28 14:23 | ED.NEUROSD ---
HPI - Neuro Symptoms/Deficit General Chief Complaint: Neuro Symptoms/Deficit <Katia Melgoza PA-C - Last Filed: 02/28/25 17:53> Stated Complaint: Left facial droop after seizure-diff walking <Katia Melgoza PA-C - Last Filed: 02/28/25 17:53> Time Seen by Provider: 02/28/25 14:23 <Katia Melgoza PA-C - Last Filed: 02/28/25 17:53> Focused HPI: This is a 34 year old female that presents to the ER for seizures, headache. Reports she feels spacy, has involuntary jerking. Reports she used to see a neurologist and take anti-epileptics, but has not in some time. She has had these symptoms over the last several days. She felt like she had facial droop today which prompted her to be seen. GENERAL: Well-appearing, well-nourished, and in no acute distress. HEAD: Normocephalic, atraumatic. CHEST: Clear to auscultation. ?No respiratory distress. HEART: Regular rate and rhythm.? NEURO: ?Alert and oriented x3. Normal facial symmetry Patient screened in triage and initial orders placed.? ?Additional care and disposition to be based upon?diagnostic testing and treatment. <Katia Melgoza PA-C - Last Filed: 02/28/25 17:53> History of Present Illness HPI Narrative: Patient 34-year-old female who presents emergency department with chief complaint headache and facial droop. 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 Nursing and ancillary documentation was reviewed. <Robert Ramirez MD - Last Filed: 02/28/25 17:22> PMFSH Past Medical History Medical History: Medical History Seizures Asthma Seasonal allergies <Katia Melgoza PA-C - Last Filed: 02/28/25 17:53> Surgical History Surgical History: Surgical History No significant past surgical history <Katia Melgoza PA-C - Last Filed: 02/28/25 17:53> Social History Social History: Social History Smoking packs per day: 0.5 Smoking cigarettes per day: 10.0 Smoking status: Current every day smoker Alcohol intake: current Substance use: former Substance use type: amphetamines <Katia Melgoza PA-C - Last Filed: 02/28/25 17:53> Exam Narrative: GENERAL: Well-appearing, well-nourished, and in no acute distress. HEAD: Normocephalic, atraumatic. EYES: PERRLA and EOMI. ENT: Nares clear, no rhinorrhea or epistaxis. Mucous membranes moist. NECK: Supple. CHEST: Clear to auscultation. No respiratory distress. HEART: Regular rate and rhythm. No murmur heard. Normal peripheral pulses. ABDOMEN: Soft, nontender, nondistended, normal active bowel sounds. EXTREMITIES: Normal range of motion. No edema. SKIN: Warm, dry, no rash. NEURO: No focal deficits. Alert and oriented x3. PSYCH: Normal mood and affect. <Robert Ramirez MD - Last Filed: 02/28/25 17:22> Course Vital Signs Vital signs: Vital Signs Temperature 98.2 F 02/28/25 12:34 Pulse Rate 90 02/28/25 12:34 Respiratory Rate 16 02/28/25 12:34 Blood Pressure 151/86 H 02/28/25 12:34 Pulse Oximetry 100 02/28/25 12:34 Temperature 98.2 F 02/28/25 12:34 Pulse Rate 57 L 02/28/25 17:30 Respiratory Rate 16 02/28/25 17:30 Blood Pressure 124/85 02/28/25 17:30 Pulse Oximetry 100 02/28/25 17:30 <Katia Melgoza PA-C - Last Filed: 02/28/25 17:53> Vital Signs Temperature 98.2 F 02/28/25 12:34 Pulse Rate 90 02/28/25 12:34 Respiratory Rate 16 02/28/25 12:34 Blood Pressure 151/86 H 02/28/25 12:34 Pulse Oximetry 100 02/28/25 12:34 Temperature 98.2 F 02/28/25 12:34 Pulse Rate 57 L 02/28/25 17:30 Respiratory Rate 16 02/28/25 17:30 Blood Pressure 124/85 02/28/25 17:30 Pulse Oximetry 100 02/28/25 17:30 <Robert Ramirez MD - Last Filed: 02/28/25 17:22> MDM - Neuro Symptoms/Deficit MDM Narrative Medical decision making narrative: Differential diagnosis includes at seizure, migraine headache, Patient is currently alert oriented not showing signs of facial droop. Patient did have remote history of possible seizures that she had been apparently given prescriptions for but has not been compliant with medications the patient has not seen a neurologist in many years CT head showed no acute abnormality The patient was treated with a migraine cocktail Given the patient's symptoms case was discussed with Neurology and was recommended to expedite the patient's workup by admission and MRI an EEG <Robert Ramirez MD - Last Filed: 02/28/25 17:22> Lab Data Result diagrams: 02/28/25 15:53 02/28/25 15:53 <Katia Melgoza PA-C - Last Filed: 02/28/25 17:53> Labs: Lab Results 02/28/25 02/28/25 Range/Units 15:53 15:55 WBC 8.4 (4.5-10.0) K/mm3 RBC 4.14 L (4.2-5.4) M/mm3 Hgb 12.5 (12.0-15.0) g/dL Hct 37.2 (37.0-47.0) % MCV 89.9 (80-100) fl MCH 30.2 (26-34) pg MCHC 33.6 (32-36) g/dl RDW 12.4 (11.5-14.5) % Plt Count 318 (150-375) k/mm3 MPV 9.0 (7.4-10.4) fl Immature Gran % (Auto) 0.4 (0-0.5) % Neut % (Auto) 66.4 (45.5-73.1) % Lymph % (Auto) 27.1 (18.3-44.2) % Stephenson % (Auto) 5.0 (2.6-8.5) % Eos % (Auto) 0.6 (0-4.4) % Baso % (Auto) 0.5 (0.2-1.2) % Lymph # (Auto) 2.29 (0.9-3.2) K/mm3 Stephenson # (Auto) 0.4 (0.1-0.6) K/mm3 Eos # (Auto) 0.1 (0-0.3) K/mm3 Baso # (Auto) 0.0 (0.0-0.1) K/mm3 Abs Immat Gran (auto) 0.03 (0.00-0.031) K/mm3 Absolute Neuts (auto) 5.6 (1.3-6.7) K/mm3 Absolute Nucleated RBC 0.000 (0.0-0.012) K/mm3 Nucleated RBC % 0.0 (0.0-0.2) % Sodium 139 (137-145) mmol/L Potassium 3.9 (3.4-5.0) mmol/L Chloride 107 (98-107) mmol/L Carbon Dioxide 25 (22-30) mmol/L Anion Gap 7 (4-12) mmol/L BUN 14 (7-17) mg/dL Creatinine 0.56 L (0.7-1.0) mg/dL Estim Creat Clear Calc 111 ml/min Estimated GFR > 60 (59 - ) Glucose 90 (65-110) mg/dL Calcium 9.0 (8.4-10.2) mg/dL Magnesium 1.8 (1.6-2.3) mg/dL Total Bilirubin 0.5 (0.2-1.3) mg/dL AST 22 (14-36) U/L ALT 14 (6-35) U/L Alkaline Phosphatase 54 (38-126) U/L Total Protein 7.0 (6.3-8.2) g/dL Albumin 4.4 (3.5-5.1) g/dL Urine Color Yellow (Yellow) Urine Appearance Clear (Clear) Urine pH 5.5 (5.0-9.0) Ur Specific [place] 1.025 (1.001-1.035) Urine Protein Negative (Negative) mg/dL Urine Glucose (UA) Negative (Negative) mg/dL Urine Ketones Trace H (Negative) mg/dL Ur Blood (Man) Negative (Negative) Urine Nitrate Negative (Negative) Urine Bilirubin Negative (Negative) Urine Urobilinogen 1.0 (<2.0) mg/dL Leukocyte Esterase Rfl Negative (Negative) CELESTINA/UL POC Urine HCG, Qual Negative (Negative) Urine Opiates Screen Negative (Negative) Urine Methadone Screen Negative (Negative) Ur Barbiturates Screen Negative (Negative) Ur Phencyclidine Scrn Negative (Negative) Ur Amphetamine Screen Negative (Negative) U Benzodiazepines Scrn Negative (Negative) Urine Cocaine Screen Negative (Negative) U Cannabinoids Screen Negative (Negative) Ethyl Alcohol < 10 (<10) mg/dL <Katia Melgoza PA-C - Last Filed: 02/28/25 17:53> Lab Results 02/28/25 02/28/25 Range/Units 15:53 15:55 WBC 8.4 (4.5-10.0) K/mm3 RBC 4.14 L (4.2-5.4) M/mm3 Hgb 12.5 (12.0-15.0) g/dL Hct 37.2 (37.0-47.0) % MCV 89.9 (80-100) fl MCH 30.2 (26-34) pg MCHC 33.6 (32-36) g/dl RDW 12.4 (11.5-14.5) % Plt Count 318 (150-375) k/mm3 MPV 9.0 (7.4-10.4) fl Immature Gran % (Auto) 0.4 (0-0.5) % Neut % (Auto) 66.4 (45.5-73.1) % Lymph % (Auto) 27.1 (18.3-44.2) % Stephenson % (Auto) 5.0 (2.6-8.5) % Eos % (Auto) 0.6 (0-4.4) % Baso % (Auto) 0.5 (0.2-1.2) % Lymph # (Auto) 2.29 (0.9-3.2) K/mm3 Stephenson # (Auto) 0.4 (0.1-0.6) K/mm3 Eos # (Auto) 0.1 (0-0.3) K/mm3 Baso # (Auto) 0.0 (0.0-0.1) K/mm3 Abs Immat Gran (auto) 0.03 (0.00-0.031) K/mm3 Absolute Neuts (auto) 5.6 (1.3-6.7) K/mm3 Absolute Nucleated RBC 0.000 (0.0-0.012) K/mm3 Nucleated RBC % 0.0 (0.0-0.2) % Sodium 139 (137-145) mmol/L Potassium 3.9 (3.4-5.0) mmol/L Chloride 107 (98-107) mmol/L Carbon Dioxide 25 (22-30) mmol/L Anion Gap 7 (4-12) mmol/L BUN 14 (7-17) mg/dL Creatinine 0.56 L (0.7-1.0) mg/dL Estim Creat Clear Calc 111 ml/min Estimated GFR > 60 (59 - ) Glucose 90 (65-110) mg/dL Calcium 9.0 (8.4-10.2) mg/dL Magnesium 1.8 (1.6-2.3) mg/dL Total Bilirubin 0.5 (0.2-1.3) mg/dL AST 22 (14-36) U/L ALT 14 (6-35) U/L Alkaline Phosphatase 54 (38-126) U/L Total Protein 7.0 (6.3-8.2) g/dL Albumin 4.4 (3.5-5.1) g/dL Urine Color Yellow (Yellow) Urine Appearance Clear (Clear) Urine pH 5.5 (5.0-9.0) Ur Specific [place] 1.025 (1.001-1.035) Urine Protein Negative (Negative) mg/dL Urine Glucose (UA) Negative (Negative) mg/dL Urine Ketones Trace H (Negative) mg/dL Ur Blood (Man) Negative (Negative) Urine Nitrate Negative (Negative) Urine Bilirubin Negative (Negative) Urine Urobilinogen 1.0 (<2.0) mg/dL Leukocyte Esterase Rfl Negative (Negative) CELESTINA/UL POC Urine HCG, Qual Negative (Negative) Urine Opiates Screen Negative (Negative) Urine Methadone Screen Negative (Negative) Ur Barbiturates Screen Negative (Negative) Ur Phencyclidine Scrn Negative (Negative) Ur Amphetamine Screen Negative (Negative) U Benzodiazepines Scrn Negative (Negative) Urine Cocaine Screen Negative (Negative) U Cannabinoids Screen Negative (Negative) Ethyl Alcohol < 10 (<10) mg/dL <Robert Ramirez MD - Last Filed: 02/28/25 17:22> Critical Care Time Critical Care Time Critical Care Time: No <Katia Melgoza PA-C - Last Filed: 02/28/25 17:53> Discharge Plan Discharge Clinical Impression: Convulsions Qualifiers: Convulsion type: unspecified Qualified Code(s): R56.9 - Unspecified convulsions Headache Qualifiers: Headache type: unspecified Headache chronicity pattern: acute headache Intractability: not intractable Qualified Code(s): R51.9 - Headache, unspecified <Katia Melgoza PA-C - Last Filed: 02/28/25 17:53> Patient Disposition: Still a Patient <Katia Melgoza PA-C - Last Filed: 02/28/25 17:53> Condition: Stable <Katia Melgoza PA-C - Last Filed: 02/28/25 17:53> Patient Language: Portuguese <Katia Melgoza PA-C - Last Filed: 02/28/25 17:53> Prescriptions: No Action albuterol sulfate [Ventolin HFA] 90 mcg/actuation HFA aerosol inhaler 2 puff INHALATION .Q4 hours PRN (Reason: cough) Qty: 18 0RF ondansetron 4 mg tablet,disintegrating 4 mg PO Q6-8H PRN (Reason: nausea and vomiting) Qty: 14 0RF Isentress 400 mg tablet 400 mg PO BID Qty: 28 0RF Viread 200 mg tablet 200 mg PO ONCE Qty: 28 0RF Rx Instructions: starter pack metronidazole 500 mg tablet 500 mg PO Q8H 7 Days Qty: 21 0RF doxycycline hyclate 100 mg capsule 100 mg PO BID Qty: 14 0RF <Katia Melgoza PA-C - Last Filed: 02/28/25 17:53> Follow-up/Referrals: PHYSICIAN,GLASS CUTTER [Primary Care Provider] - <Katia Melgoza PA-C - Last Filed: 02/28/25 17:53> Time of Disposition: 17:22 <Katia Melgoza PA-C - Last Filed: 02/28/25 17:53> 17:22 <Robert Ramirez MD - Last Filed: 02/28/25 17:22>
--- OUTSIDE RECORDS SUMMARY | 2025-02-28 14:29 | XMS_ITS | Referral Summary ---
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
--- OUTSIDE RECORDS SUMMARY | 2025-02-28 14:29 | XMS_ITS | Clinical Summary ---
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
[2025-02-28 15:34] VITALS: BP 128/86; PULSE 68; PULSE 72; RESP 17; O2SAT 100
[2025-02-28 15:52] VITALS: BP 128/86; PULSE 73; RESP 18; O2SAT 99
[2025-02-28 15:57] LABS: BEDSIDEPREGUCG Negative (Negative)
[2025-02-28 16:04] LABS: Add Urine Microscopic? NO; Appearance Urine Clear (Clear); Bilirubin Urine Negative (Negative); Blood Urine Negative (Negative); Color Urine Yellow (Yellow); Glucose Urine UA Negative (Negative); Ketones Urine Trace mg/dL (Negative); Leukocyte Esterase Ur Negative LEU/UL (Negative); Nitrate Urine Negative (Negative); Protein Urine Negative (Negative); Specific Grav Ur 1.025 (1.001-1.035); pH Urine 5.5 (5.0-9.0)
[2025-02-28 16:12] LABS: Ethanol < 10 mg/dL (<10)
[2025-02-28 16:13] LABS: Alanine Aminotransferase 14 U/L (6-35); Albumin Level 4.4 g/dL (3.5-5.1); Alkaline Phosphatase 54 U/L (38-126); Anion Gap 7 mmol/L (4-12); Aspartate Amino Transferase 22 U/L (14-36); Bilirubin,Total 0.5 mg/dL (0.2-1.3); Blood Urea Nitrogen 14 mg/dL (7-17); Carbon Dioxide 25 mmol/L (22-30); Chloride 107 mmol/L (98-107); Estimated CRCL calculation 111 ml/min; Estimated Glomerular Filt Rate > 60; Glucose 90 mg/dL (65-110); Magnesium 1.8 mg/dL (1.6-2.3); Potassium 3.9 mmol/L (3.4-5.0); Sodium 139 mmol/L (137-145)
[2025-02-28 16:14] LABS: Basophils Percent Auto 0.5 % (0.2-1.2); Eosinophils Absolute Auto 0.1 K/mm3 (0-0.3); Eosinophils Percent Auto 0.6 % (0-4.4); Hematocrit 37.2 % (37.0-47.0); Hemoglobin 12.5 g/dL (12.0-15.0); Immature Granulocyte Absolute 0.03 K/mm3 (0.00-0.031); Immature Granulocyte Percent A 0.4 % (0-0.5); Lymphocytes Absolute Auto 2.29 K/mm3 (0.9-3.2); Lymphocytes Percent Auto 27.1 % (18.3-44.2); Mean Corpuscular HGB Conc 33.6 g/dl (32-36); Mean Corpuscular Hemoglobin 30.2 pg (26-34); Mean Corpuscular Volume 89.9 fl (80-100); Monocytes Absolute Auto 0.4 K/mm3 (0.1-0.6); Neutrophils Absolute Auto 5.6 K/mm3 (1.3-6.7); Neutrophils Percent Auto 66.4 % (45.5-73.1); Platelet Count Result 318 k/mm3 (150-375); Red Blood Count 4.14 M/mm3 (4.2-5.4); Red Cell Distribution Width 12.4 % (11.5-14.5); White Blood Count 8.4 K/mm3 (4.5-10.0)
[2025-02-28 16:29] LABS: Amphetamine Screen Urine Negative (Negative); Barbiturate Screen Urine Negative (Negative); Benzodiazepines Screen Urine Negative (Negative); Cannabinoid Screen Urine Negative (Negative); Cocaine Screen Urine Negative (Negative); Methadone Screen Urine Negative (Negative); Opiate Screen Urine Negative (Negative); Phencyclidine Screen Urine Negative (Negative)
[2025-02-28] MEDS: PROCHLORPERAZINE EDISYLATE 10 MG/2 ML VIAL IV PUSH (16:29)
[2025-02-28] MEDS: SODIUM CHLORIDE 0.9% IV 1,000 ML 999 ML IV CONT (16:29)
[2025-02-28] MEDS: diphenhydrAMINE HCl INJ 50 MG/ML VIAL 25 MG IV PUSH (16:30)
--- NOTE | 2025-02-28 17:14 | P.HP_ITS ---
H&P: HPI History of Present Illness Date/Time: 02/28/25 17:14 Chief Complaint: Facial Twitching, Facial Droop Narrative: 34 y/o F with PMH of asthma and seizures presents here with facial twitching, headache, and facial droop. The patient presents here from home for further evaluation of possible seizure- like activity. She reports onset after she was using a laser pointer for cat and believes the laser pointing into her eyes may have provoked a seizure. Incident occurred yesterday. She reports she was very spacey after and was in and out of consciousness for a few hours. Reports associated dizziness and nausea. She believes she was incontinent of urine, denies bowel incontinence. She reports a previous history of seizures and was previously on anti-epileptic, she reports she is no longer on this medication as she did not like the way it made her feel. Has been off this medication for years (estimates she stopped in 2021) - she is unsure what medication it was. She also previously followed with a neurologist, has not seen them for the past 10 years. She initially sought care yesterday, however due to wait times she left before being seen. She sought re-evaluation today after she developed a transient facial droop. She currently denies accompanying focal weakness or focal numbness. Endorsing a headache. She describes the headache as dull, occipital, radiation to the front of her head, band-like. She arrived to the emergency department without neuro deficits per ED provider. She also has a history of methamphetamine use, has been sober for the past several months. UDS negative today. Initial VS at presentation: 98.2? F, HR 90, R 16, 151/86, and 100% on RA. ED workup showed: No leukocytosis, no anemia, no significant electrolyte derangements, renal function within normal limits, UA showed trace ketones otherwise unremarkable, hCG negative, UDS negative, ethanol negative. Head CT showed normal head. Review of Systems Review of Systems: All systems reviewed & are unremarkable except as noted in HPI and below PMFSH Past Medical History Medical History Seizures Asthma Seasonal allergies Surgical History Surgical History No significant past surgical history Social History Social History Smoking packs per day: 0.5 Smoking cigarettes per day: 10.0 Years smoked: 18 Smoking pack-years: 9.00 Smoking status: Current every day smoker Tobacco type: cigarettes Alcohol intake: never Substance use: former Substance use type: methamphetamine Last use: >2mo ago Do You Feel Safe in your Home?: Yes Lack of Transportation: No Lack of Food: Never True Current Housing: I Have Housing Concerned About Future Housing: No Difficulty Paying Gas/Electric Bills: No Difficulty Paying for Meds: No Currently Unemployed: No Education: High School Diploma/GED Difficulty w/ Childcare or Family Care: No Spiritual care concerns: No Meds Home Medications and Allergies Home Medications ?Medication ?Instructions ?Recorded ?Confirmed ?Type albuterol sulfate 90 mcg/actuation 2 puff inhalation .Q4 hours PRN 03/04/24 02/28/25 Rx aerosol inhaler (Ventolin HFA) cough #18 grams ibuprofen 600 mg tablet 600 mg PO Q8H PRN pain 02/28/25 02/28/25 History mometasone-formoterol HFA 100 1 puff inhalation Q12H PRN 02/28/25 02/28/25 History mcg-5 mcg/actuation aerosol shortness of breath or wheezing inhaler (Dulera) Allergies Allergy/AdvReac Type Severity Reaction Status Date / Time No Known Allergies Allergy Verified 02/28/25 12:27 Vital Signs Vital Signs - 24 hr 02/28/25 12:34 02/28/25 15:34 02/28/25 15:34 Temperature 98.2 F Pulse Rate 90 68 72 Respiratory Rate 16 17 Blood Pressure 151/86 H 128/86 Pulse Oximetry 100 100 02/28/25 15:52 Temperature Pulse Rate 73 Respiratory Rate 18 Blood Pressure 128/86 Pulse Oximetry 99 Exam Const: General: comfortable and no acute distress Other: , female, nontoxic appearance HENMT: Face/Nose/Sinus: Normal nares present Mouth: Yes moist mucous membranes Eyes: General: appearance normal, both eyes and all related structures Sclera: sclerae normal Pupils: Equal, round and reactive pupils present EOM: EOMs intact bilaterally Resp: Effort & Inspection: normal respiratory effort Auscultation: clear to auscultation bilaterally Cardio: Rate: regular rate Rhythm: regular rhythm Other: S1-S2 present without murmur, rub, ectopy GI: Other: Abdomen soft, nondistended, nontender. Normoactive bowel sounds in all quadrants. Skin: General skin exam: normal color and no rashes or lesions noted Wounds: no wounds Neuro: Speech: normal speech Motor exam (neuro): 5/5 motor strength present throughout Sensory Exam: normal sensation Other: A&O x4, drowsy. Extrem: General: normal to inspection Psych: Mental Status: mental status grossly normal Affect: normal affect Other: Good insight and judgment, pleasant H&P: Results Labs Labs: Short CBC 02/28/25 Range/Units 15:53 WBC 8.4 (4.5-10.0) K/mm3 Hgb 12.5 (12.0-15.0) g/dL Hct 37.2 (37.0-47.0) % Plt Count 318 (150-375) k/mm3 BMP 02/28/25 15:53 Sodium 139 Potassium 3.9 Chloride 107 Carbon Dioxide 25 BUN 14 Creatinine 0.56 L Glucose 90 Calcium 9.0 Liver Function 02/28/25 Range/Units 15:53 Total Bilirubin 0.5 (0.2-1.3) mg/dL AST 22 (14-36) U/L ALT 14 (6-35) U/L Alkaline Phosphatase 54 (38-126) U/L Albumin 4.4 (3.5-5.1) g/dL Urine 02/28/25 Range/Units 15:53 Urine Color Yellow (Yellow) Urine Appearance Clear (Clear) Urine pH 5.5 (5.0-9.0) Ur Specific [place] 1.025 (1.001-1.035) Urine Protein Negative (Negative) mg/dL Urine Glucose (UA) Negative (Negative) mg/dL Assessment and Plan Assessment and plan (1) Convulsions: Qualifiers: Convulsion type: unspecified Qualified Code(s): R56.9 - Unspecified convulsions Code(s): R56.9 - Unspecified convulsions Status: Acute Assessment and Plan: - History of seizures, possibility of recurrence that was provoked by a laser pointer - ED spoke with on-call neurologist, recommended admission for MRI and EEG - neuro checks q.4 - will defer initiation of anticonvulsants to Neurology - Ativan p.r.n. for seizure-like activity lasting greater than 2 minutes - seizure precautions (2) Headache: Qualifiers: Headache chronicity pattern: acute headache Headache type: unspecified Intractability: not intractable Qualified Code(s): R51.9 - Headache, u nspecified Code(s): R51.9 - Headache, unspecified Status: Acute Assessment and Plan: - initial treatment with IV fluids, Compazine, magnesium, Benadryl. Somewhat improved but still present. - monitor Plan Diet: regular GI Prophylaxis: not currently indicated DVT Prophylaxis: low risk IV fluids: 1L bolus Lines/Tubes: peripheral IV Code Status: full code Quality If No VTE Prophylaxis Answer both mechanical and pharmacologic: Reason no mechanical VTE proph: low risk/not indicated Reason no pharmacologic proph: low risk/not indicated Hospitalist MIPS Advance Care Plan I have confirmed that the patient's Advanced Care Plan is present, code status is documented, or surrogate decision maker is listed in patient medical record.: Yes Medication Reconciliation I have utilized all available resources to obtain, update and review the patients current medications (includes all prescriptions, OTC, herbals, cannabis, and nutritional supplements).: Yes
[2025-02-28] MEDS: MAGNESIUM SULF 2 GM/WATER 50ML 2 GM/50 ML BAG IVPB (17:26)
[2025-02-28 17:30] VITALS: BP 124/85; PULSE 57; RESP 16; O2SAT 100
[2025-02-28 19:39] VITALS: BP 114/78; PULSE 66; RESP 16; TEMP 36.6; O2SAT 99; BMI 29.1
--- NOTE | 2025-02-28 20:35 | ADMGEN ---
This patient, Kera Srinivasan, was admitted to Medical Room 243-. Patient/family oriented to hospital policies and general routines including ID bracelet, bed and alarms, visiting hours, pain management, procedures, bathroom and other care routines, personal items, smoking policy, room service/diet, and visiting hours. Information on how to activate the Rapid Response Team has been discussed. Patient/Family are encouraged to report perceived risks to care and to ask questions if they do not understand what they are told or what they should do.
[2025-03-01] VITALS (9 sets, daily range): BP systolic 107–130; BP diastolic 66–69; PULSE 61–82; RESP 14–18; TEMP 36.3–36.7; O2SAT 97–100
[2025-03-01] MEDS: IBUPROFEN 600 MG TABLET PO (05:59)
[2025-03-01 06:19] LABS: Basophils Absolute Auto 0.1 K/mm3 (0.0-0.1); Basophils Percent Auto 0.9 % (0.2-1.2); Eosinophils Absolute Auto 0.2 K/mm3 (0-0.3); Eosinophils Percent Auto 2.9 % (0-4.4); Hematocrit 36.7 % (37.0-47.0); Hemoglobin 12.1 g/dL (12.0-15.0); Immature Granulocyte Absolute 0.01 K/mm3 (0.00-0.031); Immature Granulocyte Percent A 0.1 % (0-0.5); Lymphocytes Absolute Auto 2.82 K/mm3 (0.9-3.2); Lymphocytes Percent Auto 41.5 % (18.3-44.2); Mean Corpuscular Hemoglobin 30.1 pg (26-34); Mean Corpuscular Volume 91.3 fl (80-100); Mean Platelet Volume 9.3 fl (7.4-10.4); Monocytes Absolute Auto 0.5 K/mm3 (0.1-0.6); Monocytes Percent Auto 7.7 % (2.6-8.5); Neutrophils Absolute Auto 3.2 K/mm3 (1.3-6.7); Neutrophils Percent Auto 46.9 % (45.5-73.1); Platelet Count Result 291 k/mm3 (150-375); Red Blood Count 4.02 M/mm3 (4.2-5.4); Red Cell Distribution Width 12.4 % (11.5-14.5); White Blood Count 6.8 K/mm3 (4.5-10.0)
[2025-03-01 06:31] LABS: Anion Gap 8 mmol/L (4-12); Blood Urea Nitrogen 13 mg/dL (7-17); Calcium 8.9 mg/dL (8.4-10.2); Carbon Dioxide 23 mmol/L (22-30); Chloride 107 mmol/L (98-107); Estimated CRCL calculation 114 ml/min; Estimated Glomerular Filt Rate > 60; Glucose 88 mg/dL (65-110); Potassium 3.9 mmol/L (3.4-5.0); Sodium 138 mmol/L (137-145)
[2025-03-01] MEDS: FLUTICASONE/SALMETEROL 115-21 MCG INHALER 1 PUFF 2 PUFF INHALATION (07:59)
--- NOTE | 2025-03-01 13:48 | P.PNIM_ITS ---
Progress Note: A&P Assessment and Plan (1) Convulsions: Qualifiers: Convulsion type: unspecified Qualified Code(s): R56.9 - Unspecified convulsions Code(s): R56.9 - Unspecified convulsions Status: Acute Assessment and Plan: - History of seizures, possibility of recurrence that was provoked by a laser pointer - ED spoke with on-call neurologist, recommended admission for MRI and EEG, pending these - neuro checks q.4 - will defer initiation of anticonvulsants to Neurology - Ativan p.r.n. for seizure-like activity lasting greater than 2 minutes - seizure precautions - Pt reports no continued or new neurological sx since admitted (2) Headache: Qualifiers: Headache chronicity pattern: acute headache Headache type: unspecified Intractability: not intractable Qualified Code(s): R51.9 - Headache, unspecified Code(s): R51.9 - Headache, unspecified Status: Acute Assessment and Plan: - initial treatment with IV fluids, Compazine, magnesium, Benadryl. Somewhat improved but still present. - monitor - Reporting mild GILLIAM this AM during my rounds, ibuprofen taken prior and states that it has been helping Plan Diet: regular GI Prophylaxis: not currently indicated DVT Prophylaxis: low risk IV fluids: 1L bolus in ED Lines/Tubes: peripheral IV Code Status: full code Subjective Date/time seen: 03/01/25 0941 Interval history: 34 y/o F with PMH of asthma and seizures presents here with facial twitching, headache, and facial droop. The patient presents here from home for further evaluation of possible seizure- like activity. She reports onset after she was using a laser pointer for cat and believes the laser pointing into her eyes may have provoked a seizure. Incident occurred yesterday. She reports she was very spacey after and was in and out of consciousness for a few hours. Reports associated dizziness and nausea. She believes she was incontinent of urine, denies bowel incontinence. She reports a previous history of seizures and was previously on anti-epileptic, she reports she is no longer on this medication as she did not like the way it made her feel. Has been off this medication for years (estimates she stopped in 2021) - she is unsure what medication it was. She also previously followed with a neurologist, has not seen them for the past 10 years. She initially sought care yesterday, however due to wait times she left before being seen. She so ught re-evaluation today after she developed a transient facial droop. She currently denies accompanying focal weakness or focal numbness. Endorsing a headache. She describes the headache as dull, occipital, radiation to the front of her head, band-like. She arrived to the emergency department without neuro deficits per ED provider. She also has a history of methamphetamine use, has been sober for the past several months. UDS negative. Initial VS at presentation: 98.2? F, HR 90, R 16, 151/86, and 100% on RA. ED workup showed: No leukocytosis, no anemia, no significant electrolyte deran gements, renal function within normal limits, UA showed trace ketones otherwise unremarkable, hCG negative, UDS negative, ethanol negative. Head CT showed normal head. Pt examined today and reports no new neurological changes. Reiterated the plan to await brain MRI and EEG, pt agreeable with the plan. 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 Review of Systems Review of Systems: All systems reviewed & are unremarkable except as noted in HPI and below Exam Const: General: comfortable and no acute distress Other: , female, nontoxic appearance HENMT: Face/Nose/Sinus: Normal nares present Mouth: Yes moist mucous membranes Eyes: General: appearance normal, both eyes and all related structures Sclera: sclerae normal Pupils: Equal, round and reactive pupils present EOM: EOMs intact bilaterally Neck: Neck: supple and no JVD Carotids: no bruits Resp: Effort & Inspection: normal respiratory effort Auscultation: clear to auscultation bilaterally Cardio: Rate: regular rate Rhythm: regular rhythm Other: Tele - NSR 79bpm, S1-S2 present without murmur, rub, ectopy GI: Other: Abdomen soft, nondistended, nontender. Normoactive bowel sounds in all quadrants. Skin: General skin exam: normal color and no rashes or lesions noted Wounds: no wounds Neuro: General: gait normal Cranial nerves: Yes Equal, round and reactive pupils present Speech: normal speech Motor exam (neuro): 5/5 motor strength present throughout and Normal motor muscle tone present throughout Sensory Exam: normal sensation Other: A&O x4, no neurological abnormalities Extrem: General: normal to inspection Psych: Mental Status: mental status grossly normal Affect: normal affect Other: Good insight and judgment, pleasant Objective Data Vital Signs Vital Signs: Vital Signs - 24 hr 02/28/25 15:34 02/28/25 15:34 02/28/25 15:52 Temperature Pulse Rate 68 72 73 Respiratory Rate 17 18 Blood Pressure 128/86 128/86 Pulse Oximetry 100 99 Oxygen Delivery 02/28/25 17:30 02/28/25 19:39 02/28/25 21:00 Temperature 97.8 F Pulse Rate 57 L 66 Respiratory Rate 16 16 Blood Pressure 124/85 114/78 Pulse Oximetry 100 99 Oxygen Delivery Room Air 03/01/25 00:00 03/01/25 04:00 03/01/25 06:00 Temperature 97.6 F Pulse Rate 61 66 66 Respiratory Rate 14 Blood Pressure 107/66 Pulse Oximetry 99 Oxygen Delivery 03/01/25 08:00 03/01/25 08:02 03/01/25 08:02 Temperature Pulse Rate 80 79 Respiratory Rate 18 Blood Pressure Pulse Oximetry 97 Oxygen Delivery Room Air 03/01/25 08:40 Temperature Pulse Rate Respiratory Rate Blood Pressure Pulse Oximetry Oxygen Delivery Room Air Intake/Output Intake/Output: Intake & Output 02/26/25 02/27/25 02/28/25 03/01/25 23:59 23:59 23:59 23:59 Intake Total 1050 320 Output Total 300 Balance 1050 20 Meds/Results Medications: Active Medications Generic Name Dose Route Start Last Admin Trade Name Freq PRN Reason Stop Dose Admin Acetaminophen 650 mg 02/28/25 17:11 Acetaminophen 325 Mg Tablet PO Q4H PRN Mild Pain (1-3) or Fever Albuterol 2 puff 02/28/25 22:27 Albuterol Sulfate (*Sp) Aerosol 1 Puff INHALATION Q4H PRN cough Ibuprofen 600 mg 02/28/25 22:27 03/01/25 05:59 Ibuprofen 600 Mg Tablet PO 600 mg Q8H PRN Administration Pain Rated 4-6 Lorazepam 1 mg 02/28/25 17:38 Lorazepam Inj (*Crx) 2 Mg/Ml Vial IV PUSH Q5M PRN seizure greater than 2 minute Ondansetron HCl 4 mg 02/28/25 17:11 Ondansetron Inj 4 Mg/2 Ml Vial IV PUSH Q4H PRN Nausea Fluticasone/Salmeterol 2 puff 03/01/25 08:00 03/01/25 07:59 Fluticasone/Salmeterol 115-21 Mcg Inhaler 1 Puff INHALATION 2 puff Q12HRT ELIE Administration Radiology Results: ITS Impressions Head CT 02/28/25 14:47 IMPRESSION: 1. Normal head CT. Labs Labs: Laboratory Results - last 24 hr 02/28/25 02/28/25 03/01/25 15:53 15:55 05:27 WBC 8.4 6.8 RBC 4.14 L 4.02 L Hgb 12.5 12.1 Hct 37.2 36.7 L MCV 89.9 91.3 MCH 30.2 30.1 MCHC 33.6 33.0 RDW 12.4 12.4 Plt Count 318 291 MPV 9.0 9.3 Immature Gran % (Auto) 0.4 0.1 Neut % (Auto) 66.4 46.9 Lymph % (Auto) 27.1 41.5 [place] % (Auto) 5.0 7.7 Eos % (Auto) 0.6 2.9 Baso % (Auto) 0.5 0.9 Lymph # (Auto) 2.29 2.82 [place] # (Auto) 0.4 0.5 Eos # (Auto) 0.1 0.2 Baso # (Auto) 0.0 0.1 Abs Immat Gran (auto) 0.03 0.01 Absolute Neuts (auto) 5.6 3.2 Absolute Nucleated RBC 0.000 0.000 Nucleated RBC % 0.0 0.0 Sodium 139 138 Potassium 3.9 3.9 Chloride 107 107 Carbon Dioxide 25 23 Anion Gap 7 8 BUN 14 13 Creatinine 0.56 L 0.55 L Estim Creat Clear Calc 111 114 Estimated GFR > 60 > 60 Glucose 90 88 Calcium 9.0 8.9 Magnesium 1.8 Total Bilirubin 0.5 AST 22 ALT 14 Alkaline Phosphatase 54 Total Protein 7.0 Albumin 4.4 Urine Color Yellow Urine Appearance Clear Urine pH 5.5 Ur Specific [place] 1.025 Urine Protein Negative Urine Glucose (UA) Negative Urine Ketones Trace H Ur Blood (Man) Negative Urine Nitrate Negative Urine Bilirubin Negative Urine Urobilinogen 1.0 Leukocyte Esterase Rfl Negative POC Urine HCG, Qual Negative Urine Opiates Screen Negative Urine Methadone Screen Negative Ur Barbiturates Screen Negative Ur Phencyclidine Scrn Negative Ur Amphetamine Screen Negative U Benzodiazepines Scrn Negative Urine Cocaine Screen Negative U Cannabinoids Screen Negative Ethyl Alcohol < 10 Quality If No VTE Prophylaxis Answer both mechanical and pharmacologic: Reason no mechanical VTE proph: low risk/not indicated Reason no pharmacologic proph: low risk/not indicated
[2025-03-01] MEDS: ACETAMINOPHEN 325 MG TABLET 650 MG PO (15:45)
[2025-03-02] VITALS: PULSE 59
[2025-03-02 04:00] VITALS: PULSE 72
[2025-03-02 05:01] VITALS: BP 119/77; PULSE 71; RESP 16; TEMP 36.7; O2SAT 100
--- NOTE | 2025-03-02 06:36 | PCRCNOTE ---
Window of time for administration has passed. See next scheduled administration.
[2025-03-02 08:00] VITALS: PULSE 83
[2025-03-02] MEDS: FLUTICASONE/SALMETEROL 115-21 MCG INHALER 1 PUFF 2 PUFF INHALATION (08:00)
--- NOTE | 2025-03-02 11:48 | P.DS_ITS ---
DS: Admitting Diagnosis Discharge Date 03/02/2025 Admitting Diagnosis Seizure like activity DS: Discharge Diagnosis Discharge Diagnosis (1) Convulsions: Qualifiers: Convulsion type: unspecified Qualified Code(s): R56.9 - Unspecified convulsions Code(s): R56.9 - Unspecified convulsions Status: Acute Assessment and Plan: - History of seizures, possibility of recurrence that was provoked by a laser pointer - ED spoke with on-call neurologist, recommended admission for MRI and EEG -->MRI brain WDL, pending EEG -->Spoke to Dr. Moreno today on the phone, he states that no neurology is salesperson parts today but he recommends sending the pt home, no driving, and when the EEG results and is read, someone will call the pt and tell her the results. Will also put Dr. Moreno on D/C paperwork for f/u. - neuro checks q.4 have been stable - will defer initiation of anticonvulsants to Neurology f/u - Pt continues to report no continued or new neurological sx since admitted, GILLIAM now gone. (2) Headache: Qualifiers: Headache chronicity pattern: acute headache Headache type: unspecified Intractability: not intractable Qualified Code(s): R51.9 - Headache, unspecified Code(s): R51.9 - Headache, unspecified Status: Acute Assessment and Plan: - Initial treatment with IV fluids, Compazine, magnesium, Benadryl. Somewhat improved but still present. - Denies GILLIAM today Plan D/C today with plan to f/u with neurology outpt with potential start of anticonvulsants Per Dr. Moreno, pt will be contacted once EEG results DS: Summary Hospital Course Reason for hospitalization: Seizure like activity Hospital Course: 34 y/o F with PMH of asthma and seizures presents here with facial twitching, headache, and facial droop. The patient presents here from home for further evaluation of possible seizure- like activity. She reports onset after she was using a laser pointer for cat and believes the laser pointing into her eyes may have provoked a seizure. Incident occurred yesterday. She reports she was very spacey after and was in and out of consciousness for a few hours. Reports associated dizziness and nausea. She believes she was incontinent of urine, denies bowel incontinence. She reports a previous history of seizures and was previously on anti-epileptic, she reports she is no longer on this medication as she did not like the way it made her feel. Has been off this medication for years (estimates she stopped in 2021) - she is unsure what medication it was. She also previously followed with a neurologist, has not seen them for the past 10 years. She initially sought care yesterday, however due to wait times she left before being seen. She sought re-evaluation today after she developed a transient facial droop. She currently denies accompanying focal weakness or focal numbness. Endorsing a headache. She describes the headache as dull, occipital, radiation to the front of her head, band-like. She arrived to the emergency department without neuro deficits per ED provider. She also has a history of methamphetamine use, has been sober for the past several months. UDS negative. Initial VS at presentation: 98.2? F, HR 90, R 16, 151/86, and 100% on RA. ED workup showed: No leukocytosis, no anemia, no significant electrolyte gina angements, renal function within normal limits, UA showed trace ketones otherwise unremarkable, hCG negative, UDS negative, ethanol negative. Head CT showed normal head. Pt examined today and reports no new neurological changes or GILLIAM. Updated her on her nml brain MRI and awaiting EEG. Status at Discharge Cognitive/behavioral status at discharge: Stable Functional status at discharge: independent ambulation Overall status at discharge: patient is back to baseline Time Spent with Patient Time attestation: Total time spent providing and/or coordinating discharge services: Exam Const: General: comfortable and no acute distress Other: , female, nontoxic appearance HENMT: Face/Nose/Sinus: Normal nares present Mouth: Yes moist mucous membranes Eyes: General: appearance normal, both eyes and all related structures Sclera: sclerae normal Pupils: Equal, round and reactive pupils present EOM: EOMs intact bilaterally Neck: Neck: supple and no JVD Resp: Effort & Inspection: normal respiratory effort Auscultation: clear to auscultation bilaterally Cardio: Rate: regular rate Rhythm: regular rhythm Other: Tele - NSR 72bpm, S1-S2 present without murmur, rub, ectopy GI: Other: Abdomen soft, nondistended, nontender. Normoactive bowel sounds in all quadrants. Skin: General skin exam: normal color and no rashes or lesions noted Wounds: no wounds Neuro: General: gait normal Cranial nerves: Yes Equal, round and reactive pupils present Speech: normal speech Motor exam (neuro): 5/5 motor strength present throughout and Normal motor muscle tone present throughout Sensory Exam: normal sensation Other: A&O x4, no neurological abnormalities Extrem: General: normal to inspection Psych: Mental Status: mental status grossly normal Affect: normal affect Other: Good insight and judgment, pleasant Discharge Plan Discharge Attending physician on discharge: Sunitha Marquez Consulting providers: Arthur Avery; Benigno Moreno Discharging Clinician: Sunitha Marquez Anticipated Discharge Date/Time: 03/02/25 13:00 Patient Disposition: Home Activity: may shower and no driving Diet: regular Discharge Instructions: 1. Per neurology, they will call you with your EEG results. Also plan to follow- up with them outpatient, Dr. Moreno's office phone number is attached. You are also not to drive until you hear from the neurology team, for your safety. Continue to check your blood pressure and blood sugar at home if applicable. Keep your scheduled appts with your primary care provider and any specialist that you may see. Return to the emergency department if you develop sudden shortness of breath, chest pain, abnormal neurologic signs like convulsions or similar symptoms that you have been experiencing, a fever of greater than 101.5, or nausea, vomiting, abd pain, or diarrhea that does not go away. Follow-up with your primary care provider within 1-2 weeks, they will want to be updated on your inpatient stay in the hospital. Thank you for choosing [facility] for your healthcare needs. Patient Instructions: Epilepsy (GEN) Patient Language: Kinyarwanda Stand Alone Forms: General Discharge Information Follow-up/Referrals: Benigno Moreno MD [Physician] - 2 Weeks Discharge Medications: Continued albuterol sulfate [Ventolin HFA] 90 mcg/actuation HFA aerosol inhaler 2 puff INHALATION .Q4 hours PRN (Reason: cough) Qty: 18 0RF ibuprofen 600 mg tablet 600 mg PO Q8H PRN (Reason: pain) Dulera 100-5 mcg/actuation HFA aerosol inhaler 1 puff INHALATION Q12H PRN (Reason: shortness of breath or wheezing) Date of admission: 02/28/25 17:12 Primary Care Provider: Dilip,Patricio Nayak Admitting Provider: Panda Covington Attending physician on admission: Panda Covington Condition: Stable Hospitalist MIPS Heart Failure (Exclusion) Patient has history of Heart Transplant or Left Ventricular Assistive Device?: No IF YES, STOP HERE Heart Failure (Qualifier) Patient has current or prior documentation of LVEF less than or equal to 40%, or mod/servere depressed LVSF?: No IF NO, STOP HERE
[2025-03-02 12:00] VITALS: PULSE 79
--- NOTE | 2025-03-02 12:40 | PC.NURSE ---
pt's significant other was shouting that could be heard through closed door, I entered the room, he was upset and asked if it was a problem that they were having an argument, I stated that I was just checking on her, he said this is a [facility] and that we are judging him, I stated that I certainly wasn't judging anyone and that I was just monitoring the situation, he did say he was just going to leave and he was actively packing things in to his backpack, the situation was diffused and there was no further incident
--- NOTE | 2025-03-06 14:26 | WPDNEUROLOGY ---
Neurology EEG Report General Information Date of Study: 04/01/25 TEST EEG DIAGNOSIS Seizure-like activity CONDITION OF RECORDING awake drowsy and asleep. EEG NUMBER [id number] CLINICAL HISTORY Patient reports she has had 3 seizures in the last couple of days and then noticed left side of face drooping does have a history of seizures but not on anti convulsant medications. EEG DESCRIPTION Basic resting occipital frequency consists of large amount of well organized low to medium voltage 9 to 11 hertz per 2nd alpha admixed with low-voltage 15 to 21 hertz per 2nd beta. Normal anteroposterior gradient is noted. Low-voltage beta activity seen diffusely admixed with waxing and waning alpha activity posteriorly. Bilateral symmetrical sleep activity is noted. Photic stimulation not done. Hyperventilation not done. Non paroxysmal. Nonfocal. Nonlateralizing. IMPRESSION Normal record. Clinical correlation recommended normal EEG does not rule out the possibility of seizures.
== END 2025-03-02 13:20 | disposition home or self-care (01) ==
LOC: ANHED 17:08 → ANH3MEDSUR 18:06 → ANH2MED 19:12
PROVIDERS: Physician Assistant; Student in an Organized Health Care Education/Training Program; Admitting Provider Family Medicine; Emergency Provider Emergency Medicine; PCP Physician Assistant; Visit Provider Family Medicine
DX: R56.9 Unspecified convulsions (principal); R51.9 Headache, unspecified; R29.810 Facial weakness; J45.909 Unspecified asthma, uncomplicated; F17.210 Nicotine dependence, cigarettes, uncomplicated; Z79.51 Long term (current) use of inhaled steroids
CPT/HCPCS: 36415; 70450; 70553; 80048; 80053; 80307; 81003; 81025; 82077; 83735; 85025; 94640; 95816; 96361; 96365; 96366; 96375; 99285; A9270; A9579; G0378; G0379; J0780; J1200; J3475; J7030

== ENCOUNTER 2025-07-03 18:33 | Emergency (ER) | payer OTHER, SELFPAY ==
--- NOTE | 2025-07-03 18:40 | ED.URI ---
HPI - URI/Sore Throat General Stated Complaint: tired, feeling bad, fever, mouth was swollen Time Seen by Provider: 07/03/25 18:40 Source: patient and RN notes reviewed Mode of arrival: ambulatory Limitations: no limitations History of Present Illness MD elicited complaint: cough and sore throat Related Data Home Medications ?Medication ?Instructions ?Recorded ?Confirmed ?Last Taken ?Type ibuprofen 600 mg tablet 600 mg PO Q8H PRN pain 02/28/25 02/28/25 Unknown History mometasone-formoterol HFA 100 1 puff inhalation Q12H PRN 02/28/25 02/28/25 Unknown History mcg-5 mcg/actuation aerosol shortness of breath or wheezing inhaler (Dulera) Allergies Allergy/AdvReac Type Severity Reaction Status Date / Time No Known Allergies Allergy Verified 07/03/25 18:38 Review of Systems Review of Systems: CONSTITUTIONAL: Denies malaise, chills, sweats, or fever. EYES: Denies visual changes, redness, or discharge. ENT: Reports rhinorrhea, congestion, sinus pain, otalgia and sore throat. CARDIOVASCULAR: Denies chest pain, palpitations, or edema. RESPIRATORY: Reports cough. Denies dyspnea. GASTROINTESTINAL: Denies abdominal pain, nausea, vomiting, diarrhea SKIN: Denies rash or itching. MUSCULOSKELETAL: Denies myalgia. NEUROLOGIC: Denies headache. All systems reviewed & are unremarkable except as noted in HPI and below PMFSH Past Medical History Medical History (Updated 03/26/25 @ 15:48 by Marnie Nunez MD) Migraine syndrome Seizures Asthma Seasonal allergies Surgical History Surgical History No significant past surgical history Social History Social History Smoking packs per day: 0.5 Smoking cigarettes per day: 10.0 Years smoked: 18 Smoking pack-years: 9.00 Smoking status: Current every day smoker Tobacco type: cigarettes Alcohol intake: never Substance use: former Substance use type: methamphetamine Last use: >2mo ago Do You Feel Safe in your Home?: Yes Lack of Transportation: No Lack of Food: Never True Current Housing: I Have Housing Concerned About Future Housing: No Difficulty Paying Gas/Electric Bills: No Difficulty Paying for Meds: No Currently Unemployed: No Education: High School Diploma/GED Difficulty w/ Childcare or Family Care: No Spiritual care concerns: No Comments At time of signature, agree with nursing past medical, surgical, social and family history. There is no relevant family history pertinent to the presenting complaint Exam Narrative: GENERAL: Well-appearing, well-nourished, and in no acute distress. HEAD: Normocephalic EYES: PERRLA, conjunctivae clear ENT: Nares clear, turbinates edematous and erythematous, clear discharge. Mucous membranes moist. TM pearly cueva with dull light reflex bilaterally; no tragal tenderness. Oropharynx not erythematous without lesions. Tonsils not enlarged and without exudate, no drooling, no hoarseness, no trismus, uvula midline. NECK: Supple. No lymphadenopathy CHEST: Clear to auscultation, breath sounds equal. No wheezing, rhonchi, rales, or stridor. No respiratory distress, speaks in full sentences. HEART: Regular rate and rhythm. No murmur heard. SKIN: Warm, dry, no rash. NEURO: Alert and oriented x3. PSYCH: Normal mood and affect Course Course Emergency Course: Patient is aware of diagnosis, understands and agrees to treatment plan. Anticipatory guidance given. Patient agrees to follow-up as directed and is aware of reasons to seek care at the emergency department. Portions of this record may have been created with voice recognition software Level of Care: Express Care Visit Vital Signs Vital signs: Reviewed. MDM - URI/Sore Throat MDM Narrative Medical decision making narrative: Differential diagnosis considered: Britton virus, strep pharyngitis, allergic rhinitis, upper respiratory tract infection, sinusitis, rhinosinusitis, nasopharyngitis. viral pharyngitis, otitis media, otitis externa, pneumonia, bronchitis, viral cough syndrome, viral syndrome, and influenza. Exam findings show no acute concerns or changes; patient is non-toxic appearing and is in no distress. Patient is appropriate for outpatient treatment and follow-up. Lab Data Attestation: I reviewed the patient's lab results. Critical Care Time Critical Care Time Critical Care Time: No Discharge Plan Discharge Patient Language: Salvadorean Prescriptions: No Action albuterol sulfate [Ventolin HFA] 90 mcg/actuation HFA aerosol inhaler 2 puff INHALATION .Q4 hours PRN (Reason: cough) Qty: 18 0RF ibuprofen 600 mg tablet 600 mg PO Q8H PRN (Reason: pain) Dulera 100-5 mcg/actuation HFA aerosol inhaler 1 puff INHALATION Q12H PRN (Reason: shortness of breath or wheezing) Follow-up/Referrals: UNKNOWN,DOCTOR [Primary Care Provider]
[2025-07-03 18:45] VITALS: BP 132/88; PULSE 66; RESP 16; TEMP 36.8; O2SAT 99
--- NOTE | 2025-07-03 18:47 | ED_ITS ---
HPI - Dental/Oral General Chief complaint: Dental/Oral Stated complaint: tired, feeling bad, fever, mouth was swollen Time Seen by Provider: 07/03/25 18:40 Mode of arrival: ambulatory Limitations: no limitations History of Present Illness HPI Narrative: 34-year-old female presents with concern for right lower dental pain. She reports pain is on and off chronically. Reports it has been flared up the last couple of days. Reports she is having general malaise. Reports the pain is radiating to ear. MD Complaint: tooth pain Related Data Home Medications ?Medication ?Instructions ?Recorded ?Confirmed ?Last Taken ?Type ibuprofen 600 mg tablet 600 mg PO Q8H PRN pain 02/2802/28/25 Unknown History mometasone-formoterol HFA 100 1 puff inhalation Q12H P RN 02/28/25 02/28/25 Unknown History mcg-5 mcg/actuation aerosol shortness of breath or whe ezing inhaler (Dulera) Allergies Allergy/AdvReac Type Severity Reaction Status Date / Time No Known Allergies Allergy Verified 07/03/25 18:38 Review of Systems Review of Systems: CONSTITUTIONAL: Denies malaise, chills, sweats, or fever. EYES: Denies visual changes ENT: Denies rhinorrhea, congestion, sinus pain, otalgia or sore throat. Reports right lower dental pain CARDIOVASCULAR: Denies chest pain, palpitations RESPIRATORY: Denies cough or dyspnea. SKIN: Denies rash or itching. MUSCULOSKELETAL: Denies myalgia. NEUROLOGIC: Denies numbness, weakness, or headache. All systems reviewed & are unremarkable except as noted in HPI and below PMFSH Past Medical History Medical History (Updated 07/03/25 @ 18:52 by Alesha Wood NP) Migraine syndrome Seizures Asthma Seasonal allergies Surgical History Surgical History No significant past surgical history Social History Social History Smoking packs per day: 0.5 Smoking cigarettes per day: 10.0 Years smoked: 18 Smoking pack-years: 9.00 Smoking status: Current every day smoker Tobacco type: cigarettes Alcohol intake: never Substance use: former Substance use type: methamphetamine Last use: >2mo ago Do You Feel Safe in your Home?: Yes Lack of Transportation: No Lack of Food: Never True Current Housing: I Have Housing Concerned About Future Housing: No Difficulty Paying Gas/Electric Bills: No Difficulty Paying for Meds: No Currently Unemployed: No Education: High School Diploma/GED Difficulty w/ Childcare or Family Care: No Spiritual care concerns: No Comments At time of signature, agree with nursing past medical, surgical, social and family history. There is no relevant family history pertinent to the presenting complaint Exam Narrative: GENERAL: Well-appearing, well-nourished, and in no acute distress. HEAD: Normocephalic, atraumatic. EYES: PERRLA, sclera clear ENT: Nares clear, turbinates pink, no rhinorrhea or epistaxis. Mucous membranes moist. TM pearly cueva with sharp light reflex bilaterally; no tragal tenderness. Oropharynx without erythema or lesions. Tonsils not enlarged and without exudate. No Missing teeth, broken teeth, caries. No jaw swelling noted. Gingival erythema noted to the right lower posterior teeth NECK: Supple. No lymphadenopathy. CHEST: No respiratory distress. Speaks in full sentences. HEART: Regular rate and rhythm. SKIN: Warm, dry, no visible rash. NEURO: Alert and oriented x3. PSYCH: Normal mood and affect Course Course Emergency Course: Patient is aware of diagnosis, understands and agrees to treatment plan. Anticipatory guidance given. Patient agrees to follow-up as directed and is aware of reasons to seek care at the emergency department. Portions of this record may have been created with voice recognition software Level of Care: Express [facility] Visit Vital Signs Vital signs: Vital Signs Temperature 98.3 F 07/03/25 18:45 Pulse Rate 66 07/03/25 18:45 Respiratory Rate 16 07/03/25 18:45 Blood Pressure 132/88 07/03/25 18:45 Pulse Oximetry 99 07/03/25 18:45 Temperature 98.3 F 07/03/25 18:45 Pulse Rate 66 07/03/25 18:45 Respiratory Rate 16 07/03/25 18:45 Blood Pressure 132/88 07/03/25 18:45 Pulse Oximetry 99 07/03/25 18:45 Reviewed. MDM - Dental/Oral MDM Narrative Medical decision making narrative: I evaluated this in the express care. History is obtained from patient who is an independent historian and physical exam was performed.? Available medical records were reviewed. ? Exam findings and relevant testing show no acute concerns or changes; patient is non-toxic appearing and is in no distress. Patients pain and complaint coupled with physical findings are consistant with dentalgia. There are no focal signs of space occupying lesions that are compromising to the airway; no dysphagia, odynophagia, dysphonia, or dyspnea. No uvular deviation or soft palate edema. Patient is non-toxic appearing. The floor of the mouth is soft with no signs of Aquiles's Angina; no induration below mandible, no neck pain. Patient is without trismus or drooling and able to swallow secretions. Patient is felt appropriate for discharge home with dental follow up. ? Differential diagnosis and treatment plan were discussed with the patient. Patient agrees with discussion and after shared medical decision making agrees with plan of care. All questions were answered to the patient's satisfaction. Patient is appropriate for outpatient treatment and follow-up. Differential Diagnosis Differential diagnosis: Likely gingival abscess, dental caries, toothache, dental abscess, fracture of tooth and aphthous ulcer Critical Care Time Critical Care Time Critical Care Time: No Discharge Plan Discharge Clinical Impression: Toothache Patient Disposition: Home Condition: Stable Instructions: Antibiotic Form Additional Instructions: Take antibiotic as directed Avoid temperature extremes May apply heat or ice to the face Gentle brushing and flossing Take 2 extra strength Tylenol, 4 ibuprofen, 80 mg of caffeine at same time. You can do this every 6 hours. Do not do this for more than 2 - 3 days. You can substitute 25 mg Benadryl at nighttime for caffeine to help you sleep. Do this for no more than 3 days. Follow-up with the dentist as soon as possible - see the list provided Patient Language: Chinese Prescriptions: New amoxicillin-pot clavulanate 875-125 mg tablet 1 tablet PO Q12H 10 Days Qty: 20 0RF ibuprofen 800 mg tablet 800 mg PO Q6H PRN (Reason: pain) Qty: 30 0RF No Action albuterol sulfate [Ventolin HFA] 90 mcg/actuation HFA aerosol inhaler 2 puff INHALATION .Q4 hours PRN (Reason: cough) Qty: 18 0RF ibuprofen 600 mg tablet 600 mg PO Q8H PRN (Reason: pain) Dulera 100-5 mcg/actuation HFA aerosol inhaler 1 puff INHALATION Q12H PRN (Reason: shortness of breath or wheezing) Follow-up/Referrals: UNKNOWN,DOCTOR [Non-Staff] Stand Alone Forms: Work/School Release IP Time of Disposition: 18:53
== END 2025-07-03 18:55 | disposition home or self-care (01) ==
PROVIDERS: Emergency Provider Nurse Practitioner
DX: K08.89 Other specified disorders of teeth and supporting structures (principal); F17.210 Nicotine dependence, cigarettes, uncomplicated; J45.909 Unspecified asthma, uncomplicated
CPT/HCPCS: 99213; G0463